=== PATIENT | male | born 1965 | race Caucasian/White ===

== ENCOUNTER → 2016-07-24 | Outpatient (CLI) | payer OTHER ==
[2016-07-24 09:14] LABS: BASO % 0.9 % (0.0-1.0); EOS # 0.3 K/mm3 (0.0-0.50); EOS % 5.3 % (0.0-3.0); LYMPH # 1.5 K/mm3 (1.5-4.5); LYMPH % 28.2 % (24.0-44.0); MEAN CORPUSCULAR HEMOGLOBIN 30.2 pg (27.0-33.0); MEAN CORPUSCULAR HGB CONC 33.7 g/dl (32.0-36.5); MEAN CORPUSCULAR VOLUME 89.6 fl (80.0-96.0); MONO # 0.5 K/mm3 (0.0-0.8); MONO % 8.2 % (0.0-5.0); NEUTROPHILS % 54.5 % (36.0-66.0); RED CELL DISTRIBUTION WIDTH 13.9 % (11.5-14.5); WHITE BLOOD COUNT 5.5 K/mm3 (4.0-10.0)
[2016-07-24 09:25] LABS: ALBUMIN 3.6 GM/DL (3.2-5.2); ALBUMIN/GLOBULIN RATIO 1.06 (1.00-1.93); ALKALINE PHOSPHATASE 76 U/L (45-117); ALT/SGPT 35 U/L (12-78); ANION GAP 8 MEQ/L (8-16); AST/SGOT 25 U/L (15-37); BILIRUBIN,TOTAL 0.5 MG/DL (0.2-1.0); BLOOD UREA NITROGEN 19 MG/DL (7-18); CARBON DIOXIDE LEVEL 28 MEQ/L (21-32); CHLORIDE LEVEL 106 MEQ/L (98-107); CHOLESTEROL LEVEL 227 MG/DL (<200); FREE T4 1.03 NG/DL (0.76-1.46); GLOMERULAR FILTRATION RATE > 60.0 (>56); GLUCOSE, FASTING 142 MG/DL (70-105); POTASSIUM SERUM 4.4 MEQ/L (3.5-5.1); SODIUM LEVEL 142 MEQ/L (136-145); TRIGLYCERIDES LEVEL 220 MG/DL (<150)
== END | disposition home or self-care (01) ==
LOC: M LAB 08:13
PROVIDERS: ATTEND Nurse Practitioner Adult Health
DX: E66.01 Morbid (severe) obesity due to excess calories (principal); E78.00 Pure hypercholesterolemia, unspecified; E55.9 Vitamin D deficiency, unspecified; Z79.899 Other long term (current) drug therapy; E11.9 Type 2 diabetes mellitus without complications

== ENCOUNTER → 2016-08-20 | Outpatient (CLI) | payer OTHER ==
--- NOTE | 2016-08-20 08:37 | REP ---
Clinical: Follow up prior opacities. Comparison: 10/23/2015. Findings: Current examination demonstrates the bilateral lung macedo to be well-aerated, symmetric, and clear. The previously identified patchy infiltrates have resolved and likely reflected small areas of pneumonia / atelectasis. A minimal amount of scarring is identified in the deep medial right lung base. No acute consolidation, nodule or mass lesion. No pleural effusion/reaction or pneumothorax. Tracheobronchial tree is patent. The mediastinum including heart/pericardium and thoracic aorta appear relatively normal for noncontrast evaluation. Surrounding musculoskeletal structures demonstrate stable age related changes without focal osseous abnormality. Impression: 1. Normal examination. No acute mediastinal or pleuroparenchymal process. 2. Previously identified infiltrates have resolved. Signed by Dougie Banerjee MD 08/20/2016 08:28 A
== END ==
LOC: M RAD 07:48
PROVIDERS: ATTEND Nurse Practitioner Adult Health
DX: R93.8 Abnormal findings on diagnostic imaging of other specified body structures (principal)

== ENCOUNTER 2016-10-05 10:52 | Inpatient (IN) | payer OTHER ==
[~2016-10-05] VITALS: Ht 190.5 cm; Wt 170.1 kg
[2016-10-05] MEDS ORDERED: NS 1,000 ML IV ONE (11:15)
[2016-10-05] MEDS ORDERED: VITA100066 PO (11:23)
[2016-10-05] MEDS ORDERED: METF500T PO (11:25)
[2016-10-05] MEDS ORDERED: DICL100T PO (11:25)
[2016-10-05 11:40] LABS: BASO % 0.1 % (0.0-1.0); EOS # 0.1 K/mm3 (0.0-0.50); EOS % 0.6 % (0.0-3.0); LARGE UNSTAINED CELL # 0.2 K/mm3 (0.0-0.4); LARGE UNSTAINED CELL % 1.2 % (0.0-4.0); LYMPH # 1.1 K/mm3 (1.5-4.5); LYMPH % 5.5 % (24.0-44.0); MEAN CORPUSCULAR HEMOGLOBIN 31.7 pg (27.0-33.0); MEAN CORPUSCULAR HGB CONC 34.8 g/dl (32.0-36.5); MEAN CORPUSCULAR VOLUME 90.9 fl (80.0-96.0); MONO # 1.2 K/mm3 (0.0-0.8); MONO % 7.6 % (0.0-5.0); NEUTROPHILS # 13.3 K/mm3 (1.8-7.7); NEUTROPHILS % 84.9 % (36.0-66.0); PLATELET COUNT, AUTOMATED 204 k/mm3 (150-450); RED CELL DISTRIBUTION WIDTH 13.9 % (11.5-14.5); WHITE BLOOD COUNT 15.7 K/mm3 (4.0-10.0)
[2016-10-05 12:30] LABS: ALBUMIN 3.3 GM/DL (3.2-5.2); ALBUMIN/GLOBULIN RATIO 0.87 (1.00-1.93); ALKALINE PHOSPHATASE 60 U/L (45-117); ALT/SGPT 26 U/L (12-78); ANION GAP 13 MEQ/L (8-16); AST/SGOT 22 U/L (15-37); BILIRUBIN,DIRECT 0.8 MG/DL (0.0-0.2); BILIRUBIN,TOTAL 1.5 MG/DL (0.2-1.0); BLOOD UREA NITROGEN 18 MG/DL (7-18); CALCIUM LEVEL 8.4 MG/DL (8.5-10.1); CARBON DIOXIDE LEVEL 25 MEQ/L (21-32); CHLORIDE LEVEL 99 MEQ/L (98-107); CREATININE FOR GFR 1.12 MG/DL (0.70-1.30); GLOMERULAR FILTRATION RATE > 60.0 (>56); GLUCOSE, FASTING 183 MG/DL (70-105); POTASSIUM SERUM 3.5 MEQ/L (3.5-5.1); SODIUM LEVEL 137 MEQ/L (136-145); TOTAL PROTEIN 7.1 GM/DL (6.4-8.2)
[2016-10-05] MEDS ORDERED: ISOVUE-370 76% 100ML VIAL (Q9967) As Ordered ONE (12:33)
[2016-10-05] MEDS ORDERED: PIPERACILLIN/TAZOBACTAM SOD 3.375 GM in D5W MINI-BAG PLUS 50 ML IV ONE (13:15)
[2016-10-05] MEDS ORDERED: SODIUM CHLORIDE 0.9% 1000 ML IV ONE (13:15)
--- NOTE | 2016-10-05 13:23 | REP ---
CT study of the abdomen and pelvis with IV but without oral contrast: History: Abdominal pain. Question appendicitis. CT contrast dose: 100 mL of Isovue [address] findings: Preliminary digital security operations analyst radiograph demonstrates a right hip replacement. There are air-filled loops of proximal and distal colon and a right ileal loop. This may reflect an ileus pattern. Axial CT images demonstrate that the lung bases are clear. There is no evidence of pleural effusion or ascites. There is mild diffuse fatty infiltration of the liver. No focal liver lesion is seen. Spleen is unremarkable. No adrenal lesion is seen. No pancreatic abnormality is observed. The gallbladder is unremarkable by CT imaging. The kidneys enhance symmetrically and are morphologically intact. In the right lower quadrant, the appendix is dilated and there is periappendiceal streaking and inflammation. No appendicolith is seen. No abscess or free air is noted. There is some inflammation of the tip of the cecum. The findings are compatible with acute appendicitis. There is a small bubble of intramural air at the cecal tip. Impression: CT findings of acute appendicitis with periappendiceal and pericecal inflammation. No abscess or free air. Mild diffuse fatty infiltration of the liver is also noted. Mild ileus. Signed by Leopoldo Grace MD 10/05/2016 01:45 P
[2016-10-05] MEDS ORDERED: DRIS50002 PO (13:27)
[2016-10-05] MEDS ORDERED: MORPHINE 4 MG/ML 1ML SYRINGE IV ONE (14:00)
[2016-10-05] MEDS ORDERED: ONDANSETRON 4MG/2ML VIAL (J2405) IV ONE (14:00)
[2016-10-05] MEDS ORDERED: ACETAMINOPHEN TAB 650MG DOSE (2X325MG) PO ONE (16:15)
[2016-10-05] MEDS ORDERED: BUPIVACAINE HCL 0.25% 30 ML VIAL As Ordered ONE (17:18)
[2016-10-05] MEDS ORDERED: ROCURONIUM BROMIDE 50 MG/5 ML VIAL As Ordered ONE ×2 (17:28→18:58)
[2016-10-05] MEDS ORDERED: SUCCINYLCHOLINE 100 MG/5 ML SYRINGE (J0330) As Ordered ONE (17:35)
[2016-10-05] MEDS ORDERED: fentaNYL 250 MCG/5 ML INJECTION (J3010) As Ordered ONE ×2 (18:28→18:58)
[2016-10-05] MEDS ORDERED: PIPERACILLIN/TAZOBACTAM SOD 2.25 GM in D5W MINI-BAG PLUS 50 ML IV ONE (18:30)
[2016-10-05] MEDS ORDERED: PROPOFOL 200 MG/20 ML VIAL As Ordered ONE ×3 (18:58→19:26)
[2016-10-05] MEDS ORDERED: MIDAZOLAM INJ 2 MG/2 ML VIAL (J2250) As Ordered ONE (18:58)
[2016-10-05] MEDS ORDERED: ONDANSETRON 4MG/2ML VIAL (J2405) As Ordered ONE (18:58)
[2016-10-05] MEDS ORDERED: KETOROLAC 60 MG/2 ML VIAL (J1885) As Ordered ONE (18:58)
[2016-10-05] MEDS ORDERED: LIDOCAINE 2% INJ 100 MG/5 ML SDV (FOR ANES.) As Ordered ONE (18:58)
[2016-10-05] MEDS ORDERED: dexameTHASONE 4 MG/ML 1ML VIAL (J1100) As Ordered ONE (18:58)
[2016-10-05] MEDS ORDERED: METOCLOPRAMIDE INJ 10MG/2ML VIAL (J2765) As Ordered ONE (18:59)
[2016-10-05] MEDS ORDERED: NEOSTIGMINE 1MG/ML 5 ML SYRINGE (J2710) As Ordered ONE (19:08)
[2016-10-05] MEDS ORDERED: GLYCOPYRROLATE INJ 0.2 MG/ML 2 ML VIAL As Ordered ONE (19:08)
--- NOTE | 2016-10-05 20:01 | ECGEPIP ---
Stationary ECG Study [facility] - ED Test Date: 2016-10-05 Pat Name: ELIANA DICK Department: Room: - Gender: M Candy Separator Enrobing: cee : 1965 Requested By: Shana Morse Order Number: [id number] Reading MD: Shana Morse Measurements Intervals [place] Rate: 104 P: 41 VT: 204 QRS: 27 QRSD: 106 T: 51 QT: 322 QTc: 424 Interpretive Statements SINUS TACHYCARDIA ABNORMAL RHYTHM ECG NSTTW ABNORMALITY INCREASED RATE 07/25/11 Electronically Signed On 10-05-2016 20:01:11 EDT by Shana Morse
[2016-10-05] MEDS ORDERED: PERCOCET 5MG/325MG TAB PO PRN (20:30)
[2016-10-05] MEDS ORDERED: ACETAMINOPHEN TAB 650MG DOSE (2X325MG) PO PRN (20:30)
[2016-10-05] MEDS ORDERED: fentaNYL 100 MCG/2 ML INJECTION (J3010) IV PRN (20:30)
[2016-10-05] MEDS ORDERED: ONDANSETRON 4MG/2ML VIAL (J2405) IV PRN (20:30)
[2016-10-05] MEDS ORDERED: LR 1,000 ML IV SCH (20:30)
[2016-10-05] MEDS ORDERED: MORPHINE 2 MG/ML 1ML SYRINGE IV PRN (20:45)
[2016-10-05] MEDS ORDERED: NORCO, ANEXSIA 5/325MG TABLET (HYDROcodone/ACETAMINOPHEN) PO PRN ×2 (20:45)
[2016-10-05 21:30] VITALS: BP 133/70
[2016-10-05 22:00] VITALS: BP 116/65
[2016-10-05 23:00] VITALS: BP 137/82
[2016-10-05] MEDS: LR 1,000 ML IV SCH (23:58)
[2016-10-05] MEDS: PIPERACILLIN/TAZOBACTAM SOD 3.375 GM in D5W MINI-BAG PLUS 50 ML IV SCH (23:58)
[2016-10-06] VITALS (8 sets, daily range): BP systolic 131–192; BP diastolic 60–98; O2SAT 95–96
[2016-10-06] MEDS: HumaLOG INSULIN (NovoLOG) PER UNIT SC SCH ×4 (01:25→18:17)
[2016-10-06 06:04] LABS: ANION GAP 9 MEQ/L (8-16); BASO % 0.1 % (0.0-1.0); BLOOD UREA NITROGEN 17 MG/DL (7-18); CALCIUM LEVEL 8.6 MG/DL (8.5-10.1); CARBON DIOXIDE LEVEL 26 MEQ/L (21-32); CHLORIDE LEVEL 101 MEQ/L (98-107); CREATININE FOR GFR 1.11 MG/DL (0.70-1.30); EOS % 0.2 % (0.0-3.0); GLOMERULAR FILTRATION RATE > 60.0 (>56); GLUCOSE, FASTING 232 MG/DL (70-105); LARGE UNSTAINED CELL # 0.1 K/mm3 (0.0-0.4); LARGE UNSTAINED CELL % 0.9 % (0.0-4.0); LYMPH # 0.9 K/mm3 (1.5-4.5); LYMPH % 5.6 % (24.0-44.0); MEAN CORPUSCULAR HEMOGLOBIN 30.5 pg (27.0-33.0); MEAN CORPUSCULAR HGB CONC 33.2 g/dl (32.0-36.5); MONO # 0.8 K/mm3 (0.0-0.8); MONO % 5.5 % (0.0-5.0); NEUTROPHILS # 11.9 K/mm3 (1.8-7.7); NEUTROPHILS % 87.7 % (36.0-66.0); PLATELET COUNT, AUTOMATED 198 k/mm3 (150-450); POTASSIUM SERUM 3.6 MEQ/L (3.5-5.1); RED CELL DISTRIBUTION WIDTH 13.9 % (11.5-14.5); SODIUM LEVEL 136 MEQ/L (136-145); WHITE BLOOD COUNT 13.5 K/mm3 (4.0-10.0)
[2016-10-06] MEDS: LR 1,000 ML IV SCH ×2 (06:30→11:30)
[2016-10-06] MEDS: PIPERACILLIN/TAZOBACTAM SOD 3.375 GM in D5W MINI-BAG PLUS 50 ML IV SCH ×3 (06:44→18:17)
[2016-10-06] MEDS: ENOXAPARIN 40 MG/0.4 ML SYRINGE (J1650) SC SCH (06:44)
[2016-10-06] MEDS: CALCIUM CARBONATE 500 MG CHEW U/D PO PRN ×4 (11:49→21:28)
[2016-10-06] MEDS: ONDANSETRON 4MG/2ML VIAL (J2405) IV PRN ×2 (15:33→21:28)
[2016-10-07] MEDS: PIPERACILLIN/TAZOBACTAM SOD 3.375 GM in D5W MINI-BAG PLUS 50 ML IV SCH ×4 (00:53→17:25)
[2016-10-07] MEDS: HumaLOG INSULIN (NovoLOG) PER UNIT SC SCH ×4 (00:53→17:26)
[2016-10-07 02:00] VITALS: BP 148/56
[2016-10-07] MEDS: CALCIUM CARBONATE 500 MG CHEW U/D PO PRN (02:02)
[2016-10-07] MEDS: KETOROLAC 30 MG/ML VIAL (J1885) IV PRN ×2 (02:02→17:25)
[2016-10-07 06:00] VITALS: BP 139/84
[2016-10-07] MEDS: ENOXAPARIN 40 MG/0.4 ML SYRINGE (J1650) SC SCH (06:44)
[2016-10-07 06:59] LABS: BASO % 0.1 % (0.0-1.0); EOS % 0.1 % (0.0-3.0); LARGE UNSTAINED CELL # 0.1 K/mm3 (0.0-0.4); LARGE UNSTAINED CELL % 1.1 % (0.0-4.0); LYMPH % 7.4 % (24.0-44.0); MEAN CORPUSCULAR HEMOGLOBIN 30.5 pg (27.0-33.0); MEAN CORPUSCULAR HGB CONC 34.1 g/dl (32.0-36.5); MEAN CORPUSCULAR VOLUME 89.6 fl (80.0-96.0); MONO # 0.6 K/mm3 (0.0-0.8); MONO % 4.9 % (0.0-5.0); NEUTROPHILS # 11.4 K/mm3 (1.8-7.7); NEUTROPHILS % 86.5 % (36.0-66.0); PLATELET COUNT, AUTOMATED 241 k/mm3 (150-450); RED CELL DISTRIBUTION WIDTH 13.7 % (11.5-14.5); WHITE BLOOD COUNT 13.2 K/mm3 (4.0-10.0)
[2016-10-07 07:18] LABS: ALBUMIN 2.4 GM/DL (3.2-5.2); ALBUMIN/GLOBULIN RATIO 0.55 (1.00-1.93); ALKALINE PHOSPHATASE 55 U/L (45-117); ALT/SGPT 24 U/L (12-78); ANION GAP 8 MEQ/L (8-16); AST/SGOT 32 U/L (15-37); BILIRUBIN,TOTAL 1.2 MG/DL (0.2-1.0); BLOOD UREA NITROGEN 19 MG/DL (7-18); CALCIUM LEVEL 8.9 MG/DL (8.5-10.1); CARBON DIOXIDE LEVEL 32 MEQ/L (21-32); CHLORIDE LEVEL 99 MEQ/L (98-107); CREATININE FOR GFR 0.98 MG/DL (0.70-1.30); GLOMERULAR FILTRATION RATE > 60.0 (>56); GLUCOSE, FASTING 158 MG/DL (70-105); POTASSIUM SERUM 3.6 MEQ/L (3.5-5.1); SODIUM LEVEL 139 MEQ/L (136-145); TOTAL PROTEIN 6.8 GM/DL (6.4-8.2)
[2016-10-07] MEDS: LR 1,000 ML IV SCH (09:01)
--- NOTE | 2016-10-07 09:18 | RO ---
DATE OF PROCEDURE: 10/05/2016 PREOPERATIVE DIAGNOSIS: Appendicitis. POSTOPERATIVE DIAGNOSIS: Appendicitis with abscess. PROCEDURE PERFORMED: Laparoscopic appendectomy with drainage of abscess and placement of drain. SURGEON: Dr. Adriel Davies. ANESTHESIA: General. INDICATIONS FOR PROCEDURE: The patient is a 51-year-old man who reported a several-day history of abdominal pain. This was fairly diffuse at first but became more localized to the right lower quadrant. He described some constant discomfort with intermittent more severe pains. He was seen in the emergency department and found to have tenderness in the right lower quadrant. His white blood cell count was elevated to almost 16,000. A CT scan revealed changes consistent with appendicitis. He is now for a laparoscopic appendectomy. OPERATIVE PROCEDURE: The patient was placed under general endotracheal anesthesia. The patient's abdomen was prepped and draped in a sterile fashion. 0.25% Marcaine was infiltrated at each of the trocar sites. A short supraumbilical midline incision was made and deepened through the subcutaneous tissues and fascia. A Sabrina cannula was inserted in the abdomen was insufflated with carbon dioxide gas. Initial examination showed some inflammatory adhesions in the right lower quadrant with portions of the omentum and bowel adherent to the anterior abdominal wall. As the abdomen was inflated, some of these attachments spontaneously, but others could be broken apart using the scope. There was some exudate noted in the lateral right lower quadrant. The patient was tilted to a Trendelenburg position and rolled to the left. A 5 mm trocar was placed in the left lower quadrant and a second trocar was placed low in the midline. Graspers were inserted. These were used to peel the adherent structures off of the anterior abdominal wall. As the tissues were , an abscess was encountered. This was irregular and walled off between the terminal ileum and cecum and anterior and lateral abdominal thomas. The suction senior administrative services officer was used to drain the purulent matter from the abscess and then irrigate the area. The attachments forming the thomas of the abscess were broken apart using primarily blunt dissection. Some portions of fibrinous exudate lining the cavity were removed with forceps through one of the trocar sites. With further exploration, the appendix was identified lying inferiorly to the cecum and lateral to the terminal ileum. Attachments were divided using the electrocautery to free the appendix and elevate this for removal. The mesoappendix was primarily divided using the electrocautery with care to ensure hemostasis. A larger vessel after cautery was clipped with a hemoclip. The appendix was dissected free down to the base. There were some areas of discoloration on the cecum and the lateral abdominal wall where the abscess had been but the wall of the cecum appeared sound. The appendix was transected at its base using an endoscopic 45 mm linear cutter stapler with a green load. The appendix was placed in an Endopouch. The right lower quadrant was copiously irrigated. There did not appear to be any significant contamination outside of the right lower quadrant. The area was inspected carefully for hemostasis and a few small bleeding points were controlled with the cautery. Final inspection showed no bleeding. Because there was still an area of inflammation with some exudate remaining, I elected to place a drain. A #19-Swedish placed Lamont drain was selected. A 5 mm trocar was placed in the lateral abdominal wall on the right just about at the level of the umbilicus. Once this was inserted, the drain was placed into the abdomen through the Hodges site and directed out through the 5 mm trocar site. The drain was sutured to the skin with #2-0 silk. Graspers were used to advance the drain into the right lower quadrant and through the area of previous abscess. The abdomen was then deflated and the appendix was recovered through the Hodges site. The fascia at the Hodges site was closed with interrupted simple sutures of #2-0 Vicryl. The skin incisions were all closed with buried #5-0 Vicryl. The drain was connected to a Amado-Hess bulb and the drain site was covered with a CHG OpSite. Light dressings were applied to the other trocar sites. The patient tolerated the procedure well. He was awakened in the operating room, extubated and moved to the recovery room in stable condition. PEG
[2016-10-07 14:00] VITALS: BP 142/72
[2016-10-07] MEDS: ONDANSETRON 4MG/2ML VIAL (J2405) IV PRN (17:25)
[2016-10-07] MEDS: metFORMIN (GLUCOPHAGE) 500 MG TAB PO SCH (19:11)
[2016-10-07] MEDS ORDERED: GLUCAGON FOR INJ 1 MG VIAL (J1610) SC PRN (20:30)
[2016-10-07] MEDS ORDERED: DEXTROSE 50% 50 ML SYRINGE IV PRN (20:30)
[2016-10-07] MEDS ORDERED: GLUCOSE 4 GM CHEW TABLET PO PRN (20:30)
[2016-10-07 22:00] VITALS: BP 166/85
[2016-10-08 02:00] VITALS: BP 144/86
[2016-10-08] MEDS: PIPERACILLIN/TAZOBACTAM SOD 3.375 GM in D5W MINI-BAG PLUS 50 ML IV SCH ×3 (02:35→11:55)
[2016-10-08] MEDS: LR 1,000 ML IV SCH (02:36)
[2016-10-08] MEDS: KETOROLAC 30 MG/ML VIAL (J1885) IV PRN ×2 (03:56→14:33)
[2016-10-08 06:00] VITALS: BP 135/84
[2016-10-08] MEDS: ENOXAPARIN 40 MG/0.4 ML SYRINGE (J1650) SC SCH (06:22)
[2016-10-08 07:09] LABS: BASO # 0.1 K/mm3 (0.0-0.2); BASO % 0.6 % (0.0-1.0); EOS # 0.1 K/mm3 (0.0-0.50); EOS % 0.8 % (0.0-3.0); LARGE UNSTAINED CELL # 0.2 K/mm3 (0.0-0.4); LARGE UNSTAINED CELL % 1.5 % (0.0-4.0); LYMPH # 1.2 K/mm3 (1.5-4.5); LYMPH % 12.1 % (24.0-44.0); MEAN CORPUSCULAR HEMOGLOBIN 30.6 pg (27.0-33.0); MEAN CORPUSCULAR HGB CONC 33.2 g/dl (32.0-36.5); MONO # 0.6 K/mm3 (0.0-0.8); MONO % 6.3 % (0.0-5.0); NEUTROPHILS # 7.8 K/mm3 (1.8-7.7); NEUTROPHILS % 78.6 % (36.0-66.0); PLATELET COUNT, AUTOMATED 256 k/mm3 (150-450); RED CELL DISTRIBUTION WIDTH 13.6 % (11.5-14.5); WHITE BLOOD COUNT 9.9 K/mm3 (4.0-10.0)
[2016-10-08] MEDS: metFORMIN (GLUCOPHAGE) 500 MG TAB PO SCH (08:45)
[2016-10-08 14:00] VITALS: BP 124/71
[2016-10-08] MEDS ORDERED: FLAG500T PO (15:22)
[2016-10-08] MEDS ORDERED: BACT800T5 PO (15:22)
== END 2016-10-08 16:15 | disposition home or self-care (01) | DRG 225 ==
LOC: M ED 11:55 → M SDC 16:23 → M PCU 21:00 → M MS5PR 10-06 16:51
PROVIDERS: ADMIT Surgery; ATTEND Surgery
PROC: 0DTJ4ZZ Resection of Appendix, Percutaneous Endoscopic Approach (ICD-10-PCS; principal; 2016-10-05 14:51)
DX: K35.3 Acute appendicitis with localized peritonitis (principal); Z68.42 Body mass index [BMI] 45.0-49.9, adult; E66.01 Morbid (severe) obesity due to excess calories; E11.9 Type 2 diabetes mellitus without complications; Z79.84 Long term (current) use of oral hypoglycemic drugs; Z79.899 Other long term (current) drug therapy

== ENCOUNTER → 2016-12-26 | Outpatient (CLI) | payer OTHER ==
[~2016-12-26] MED LIST: BACT800T5 PO; DICL100T PO; DRIS50002 PO; FLAG500T PO; METF500T PO; VITA100066 PO
[2016-12-26 09:58] LABS: BASO # 0.1 K/mm3 (0.0-0.2); BASO % 0.8 % (0.0-1.0); EOS # 0.2 K/mm3 (0.0-0.50); EOS % 1.9 % (0.0-3.0); LARGE UNSTAINED CELL # 0.1 K/mm3 (0.0-0.4); LARGE UNSTAINED CELL % 1.6 % (0.0-4.0); LYMPH # 2.3 K/mm3 (1.5-4.5); LYMPH % 26.5 % (24.0-44.0); MEAN CORPUSCULAR HEMOGLOBIN 31.9 pg (27.0-33.0); MEAN CORPUSCULAR HGB CONC 34.6 g/dl (32.0-36.5); MEAN CORPUSCULAR VOLUME 92.1 fl (80.0-96.0); MONO # 0.6 K/mm3 (0.0-0.8); MONO % 7.2 % (0.0-5.0); PLATELET COUNT, AUTOMATED 274 k/mm3 (150-450); RED CELL DISTRIBUTION WIDTH 14.1 % (11.5-14.5)
[2016-12-26 10:34] LABS: ALBUMIN/GLOBULIN RATIO 1.03 (1.00-1.93); ALKALINE PHOSPHATASE 69 U/L (45-117); ALT/SGPT 46 U/L (12-78); ANION GAP 5 MEQ/L (8-16); AST/SGOT 36 U/L (15-37); BILIRUBIN,DIRECT 0.1 MG/DL (0.0-0.2); BILIRUBIN,TOTAL 0.5 MG/DL (0.2-1.0); BLOOD UREA NITROGEN 18 MG/DL (7-18); CALCIUM LEVEL 9.9 MG/DL (8.5-10.1); CARBON DIOXIDE LEVEL 28 MEQ/L (21-32); CHLORIDE LEVEL 105 MEQ/L (98-107); CREATININE FOR GFR 0.89 MG/DL (0.70-1.30); GLOMERULAR FILTRATION RATE > 60.0 (>56); GLUCOSE, FASTING 118 MG/DL (70-105); SODIUM LEVEL 138 MEQ/L (136-145); TOTAL PROTEIN 7.9 GM/DL (6.4-8.2)
[2016-12-26 10:47] LABS: POTASSIUM SERUM 5.2 MEQ/L (3.5-5.1)
== END ==
LOC: M LAB 09:12
PROVIDERS: ATTEND Orthopaedic Surgery
DX: Z51.81 Encounter for therapeutic drug level monitoring (principal); Z79.899 Other long term (current) drug therapy; M25.559 Pain in unspecified hip

== ENCOUNTER → 2017-01-16 | Outpatient (CLI) | payer OTHER ==
[~2017-01-16] MED LIST changes: -METF500T PO; +METF500T13 PO
[2017-01-16 13:06] LABS: ALKALINE PHOSPHATASE 62 U/L (45-117); ALT/SGPT 41 U/L (12-78); ANION GAP 6 MEQ/L (8-16); AST/SGOT 24 U/L (15-37); BILIRUBIN,TOTAL 0.7 MG/DL (0.2-1.0); BLOOD UREA NITROGEN 18 MG/DL (7-18); CALCIUM LEVEL 9.5 MG/DL (8.5-10.1); CARBON DIOXIDE LEVEL 30 MEQ/L (21-32); CHLORIDE LEVEL 107 MEQ/L (98-107); CHOLESTEROL LEVEL 224 MG/DL (<200); CREATININE FOR GFR 0.96 MG/DL (0.70-1.30); GLOMERULAR FILTRATION RATE > 60.0 (>56); GLUCOSE, FASTING 121 MG/DL (70-105); POTASSIUM SERUM 4.4 MEQ/L (3.5-5.1); SODIUM LEVEL 143 MEQ/L (136-145); TRIGLYCERIDES LEVEL 190 MG/DL (<150)
[2017-01-16 13:07] LABS: ALBUMIN 3.9 GM/DL (3.2-5.2); ALBUMIN/GLOBULIN RATIO 1.08 (1.00-1.93); TOTAL PROTEIN 7.5 GM/DL (6.4-8.2)
== END ==
LOC: M LAB 11:57
PROVIDERS: ATTEND Nurse Practitioner Adult Health
DX: E66.01 Morbid (severe) obesity due to excess calories (principal); E78.00 Pure hypercholesterolemia, unspecified; E55.9 Vitamin D deficiency, unspecified; E11.9 Type 2 diabetes mellitus without complications; Z79.899 Other long term (current) drug therapy

== ENCOUNTER → 2017-05-08 | Outpatient (CLI) | payer OTHER ==
[2017-05-08 06:42] LABS: BASO % 0.6 % (0.0-1.0); EOS # 0.2 10^3/uL (0.0-0.50); EOS % 2.1 % (0.0-3.0); IMMATURE GRANULOCYTE % 0.7 % (0-0); LYMPH # 2.3 10^3/uL (1.5-4.5); LYMPH % 32.4 % (24.0-44.0); MEAN CORPUSCULAR HEMOGLOBIN 31.5 pg (27.0-33.0); MEAN CORPUSCULAR HGB CONC 34.6 g/dl (32.0-36.5); MEAN CORPUSCULAR VOLUME 90.9 fl (80.0-96.0); MONO # 0.7 10^3/uL (0.0-0.8); MONO % 9.5 % (0.0-5.0); NEUTROPHILS # 3.8 10^3/uL (1.8-7.7); NEUTROPHILS % 54.7 % (36.0-66.0); RED CELL DISTRIBUTION WIDTH 13.7 % (11.5-14.5)
[2017-05-08 07:07] LABS: ALBUMIN 3.6 GM/DL (3.2-5.2); ALBUMIN/GLOBULIN RATIO 1.06 (1.00-1.93); ALKALINE PHOSPHATASE 66 U/L (45-117); ALT/SGPT 38 U/L (12-78); ANION GAP 7 MEQ/L (8-16); AST/SGOT 22 U/L (15-37); BILIRUBIN,TOTAL 0.5 MG/DL (0.2-1.0); BLOOD UREA NITROGEN 16 MG/DL (7-18); CALCIUM LEVEL 9.5 MG/DL (8.5-10.1); CARBON DIOXIDE LEVEL 28 MEQ/L (21-32); CHLORIDE LEVEL 106 MEQ/L (98-107); CHOLESTEROL LEVEL 230 MG/DL (<200); CREATININE FOR GFR 0.94 MG/DL (0.70-1.30); GLOMERULAR FILTRATION RATE > 60.0 (>56); GLUCOSE, FASTING 143 MG/DL (70-105); POTASSIUM SERUM 4.5 MEQ/L (3.5-5.1); SODIUM LEVEL 141 MEQ/L (136-145); TRIGLYCERIDES LEVEL 279 MG/DL (<150)
== END ==
LOC: M LAB 06:10
PROVIDERS: ATTEND Nurse Practitioner Adult Health
DX: Z79.899 Other long term (current) drug therapy (principal); E55.9 Vitamin D deficiency, unspecified; E11.9 Type 2 diabetes mellitus without complications

== ENCOUNTER → 2017-07-22 | Outpatient (CLI) | payer OTHER ==
[2017-07-22 11:09] LABS: BASO # 0.1 10^3/uL (0.0-0.2); BASO % 0.8 % (0.0-1.0); EOS # 0.2 10^3/uL (0.0-0.50); EOS % 2.6 % (0.0-3.0); HEMATOCRIT 41.7 % (42.0-52.0); HEMOGLOBIN 14.7 g/dl (14.0-18.0); IMMATURE GRANULOCYTE % 0.3 % (0-0); LYMPH # 2.3 10^3/uL (1.5-4.5); LYMPH % 30.2 % (24.0-44.0); MEAN CORPUSCULAR HEMOGLOBIN 31.7 pg (27.0-33.0); MEAN CORPUSCULAR HGB CONC 35.3 g/dl (32.0-36.5); MEAN CORPUSCULAR VOLUME 89.9 fl (80.0-96.0); MONO # 0.8 10^3/uL (0.0-0.8); MONO % 10.9 % (0.0-5.0); NEUTROPHILS # 4.1 10^3/uL (1.8-7.7); NEUTROPHILS % 55.2 % (36.0-66.0); PLATELET COUNT, AUTOMATED 268 10^3/uL (150-450); RED BLOOD COUNT 4.64 10^6/uL (4.30-6.10); RED CELL DISTRIBUTION WIDTH 13.9 % (11.5-14.5); WHITE BLOOD COUNT 7.4 10^3/uL (4.0-10.0)
[2017-07-22 11:25] LABS: ALBUMIN/GLOBULIN RATIO 1.25 (1.00-1.93); ALKALINE PHOSPHATASE 95 U/L (45-117); ALT/SGPT 41 U/L (12-78); AST/SGOT 29 U/L (7-37); BILIRUBIN,DIRECT 0.1 MG/DL (0.0-0.2); BILIRUBIN,TOTAL 0.4 MG/DL (0.2-1.0); BLOOD UREA NITROGEN 22 MG/DL (7-18); CREATININE FOR GFR 1.02 MG/DL (0.70-1.30); GLOMERULAR FILTRATION RATE > 60.0 (>56); TOTAL PROTEIN 7.2 GM/DL (6.4-8.2)
== END ==
LOC: M LAB 10:43
DX: M25.559 Pain in unspecified hip (principal); Z51.81 Encounter for therapeutic drug level monitoring; Z79.899 Other long term (current) drug therapy
CPT/HCPCS: 82565

== ENCOUNTER 2017-09-16 09:17 | Emergency (ER) | payer OTHER | END 2017-09-16 12:42 | disposition home or self-care (01) | LOC: M ED 09:17 | DX: L03.116 Cellulitis of left lower limb (principal); E11.9 Type 2 diabetes mellitus without complications; J45.909 Unspecified asthma, uncomplicated; Z79.899 Other long term (current) drug therapy | CPT/HCPCS: 93971 ==

== ENCOUNTER → 2018-02-18 | Outpatient (CLI) | payer OTHER ==
[2018-02-18 14:27] LABS: BASO % 0.5 % (0.0-1.0); EOS # 0.3 10^3/uL (0.0-0.50); EOS % 3.2 % (0.0-3.0); HEMATOCRIT 42.5 % (42.0-52.0); HEMOGLOBIN 14.5 g/dl (13.5-17.5); IMMATURE GRANULOCYTE % 0.5 % (0-3.0); LYMPH # 2.7 10^3/uL (1.5-4.5); LYMPH % 32.8 % (24.0-44.0); MEAN CORPUSCULAR HGB CONC 34.1 g/dl (32.0-36.5); MONO # 0.9 10^3/uL (0.0-0.8); MONO % 10.6 % (0.0-5.0); NEUTROPHILS # 4.3 10^3/uL (1.8-7.7); NEUTROPHILS % 52.4 % (36.0-66.0); PLATELET COUNT, AUTOMATED 264 10^3/uL (150-450); RED BLOOD COUNT 4.67 10^6/uL (4.30-6.10); RED CELL DISTRIBUTION WIDTH 13.7 % (11.5-14.5); WHITE BLOOD COUNT 8.2 10^3/uL (4.0-10.0)
[2018-02-18 14:49] LABS: ALBUMIN 3.8 GM/DL (3.2-5.2); ALBUMIN/GLOBULIN RATIO 1.03 (1.00-1.93); ALKALINE PHOSPHATASE 85 U/L (45-117); ALT/SGPT 41 U/L (12-78); AST/SGOT 23 U/L (7-37); BILIRUBIN,DIRECT 0.2 MG/DL (0.0-0.2); BILIRUBIN,TOTAL 0.4 MG/DL (0.2-1.0); BLOOD UREA NITROGEN 18 MG/DL (7-18); CREATININE FOR GFR 1.05 MG/DL (0.70-1.30); GLOMERULAR FILTRATION RATE > 60.0 (>56); TOTAL PROTEIN 7.5 GM/DL (6.4-8.2)
== END ==
LOC: M LAB 13:23
DX: Z51.81 Encounter for therapeutic drug level monitoring (principal); Z79.899 Other long term (current) drug therapy; M25.559 Pain in unspecified hip
CPT/HCPCS: 82565

== ENCOUNTER → 2018-09-25 | Outpatient (CLI) | payer OTHER ==
[~2018-09-25] MED LIST changes: -DICL100T PO; +DICL100T3 PO; -DRIS50002 PO; +DRIS50003 PO; +KEFL500C17 PO
[2018-09-25 15:44] LABS: BASO # 0.1 10^3/uL (0.0-0.2); BASO % 1.1 % (0.0-1.0); EOS # 0.2 10^3/uL (0.0-0.50); EOS % 2.6 % (0.0-3.0); HEMATOCRIT 42.7 % (42.0-52.0); HEMOGLOBIN 14.7 g/dl (13.5-17.5); LYMPH # 2.9 10^3/uL (1.5-4.5); LYMPH % 35.9 % (24.0-44.0); MEAN CORPUSCULAR HEMOGLOBIN 31.1 pg (27.0-33.0); MEAN CORPUSCULAR HGB CONC 34.4 g/dl (32.0-36.5); MEAN CORPUSCULAR VOLUME 90.3 fl (80.0-96.0); MONO # 0.9 10^3/uL (0.0-0.8); MONO % 10.6 % (0.0-5.0); NEUTROPHILS % 49.6 % (36.0-66.0); PLATELET COUNT, AUTOMATED 273 10^3/uL (150-450); RED BLOOD COUNT 4.73 10^6/uL (4.30-6.10); WHITE BLOOD COUNT 8.1 10^3/uL (4.0-10.0)
[2018-09-25 16:11] LABS: ALBUMIN 3.8 GM/DL (3.2-5.2); BILIRUBIN,DIRECT 0.2 MG/DL (0.0-0.2); BILIRUBIN,TOTAL 0.7 MG/DL (0.2-1.0); CREATININE FOR GFR 1.67 MG/DL (0.70-1.30); GLOMERULAR FILTRATION RATE 45.7 (>56); TOTAL PROTEIN 7.5 GM/DL (6.4-8.2)
== END ==
LOC: M LAB 14:48
PROVIDERS: ATTEND Orthopaedic Surgery
DX: M25.559 Pain in unspecified hip (principal); Z51.81 Encounter for therapeutic drug level monitoring

== ENCOUNTER → 2019-02-10 | Outpatient (CLI) | payer OTHER ==
[~2019-02-10] MED LIST changes: -DICL100T3 PO; +DICL100T89 PO
--- NOTE | 2019-02-20 00:25 | ECWPNPC ---
PATIENT NAME: ELIANA DICK : 1965 GENDER: MALE VISIT DATE: 02/10/2019 DISCHARGE DATE: 02/10/19 1010 VISIT LOCKED DATE TIME: PHYSICIAN: PRISCILA GNOSALEZ MD RESOURCE: PRISCILA GONSALEZ MD REASON FOR APPOINTMENT 1. HIP PAIN HISTORY OF PRESENT ILLNESS PAIN SCREENING: PATIENT HAS A COMPLAINT OF ACUTE OR CHRONIC PAIN :YES 53 YEAR OLD MALE PATIENT WITH A HISTORY OF CHRONIC LEFT HIP AND BILATERAL KNEE PAIN. THE PATIENT DESCRIBES THE PAIN ACHING, BURNING, DAILY, AND CONTINUOUS WITH A PAIN SCORE OF 8-10/10 DEPENDING ON PHYSICAL ACTIVITY. THE PATIENT SAYS HE HAS BEEN SUFFERING FROM THIS PAIN FOR MANY YEARS AND HAS TRIED NARCOTICS AND OTHER MEDICATIONS TO HELP CONTROL HIS PAIN IN THE PAST. THE PATIENT SAYS DICLOFENAC IS THE ONLY MEDICATION THAT CAN COVER HIS PAIN, HOWEVER IT IS CAUSING KIDNEY ISSUES FOR HIM, BUT HE WOULD STILL LIKE TO CONTINUE WITH THE MEDICATION BECAUSE HE CANNOT FUNCTION WITHOUT IT DUE TO HIS PAIN. THE PATIENT SAYS HIS PAIN INCREASES WITH ACTIVITIES AND CAUSES DIFFICULTIES IN PERFORMING HIS DAILY ACTIVITIES, SUCH SHOWERING, GROCERY SHOPPING, AND CLEANING HIS HOUSE. PATIENT DENIES UNEXPLAINABLE WEIGHT LOSS, FEVER, CHILLS, NEW CHANGES ON HIS URINARY OR BOWEL CONTROL. FALL RISK SCREENING: SCREENING :NO FALLS REPORTED IN THE LAST YEAR CURRENT MEDICATIONS TAKING DICLOFENAC SODIUM ER 100 MG TABLET EXTENDED RELEASE 24 HOUR 1 TABLET WITH FOOD OR MILK ORAL THREE TIMES DAILY TAKING TRULICITY 1.5 MG/0.5ML SOLUTION PEN-INJECTOR SUBCUTANEOUS 1 TIME WEEKLY TAKING ONETOUCH VERIO - STRIP IN VITRO MEDICATION LIST REVIEWED AND RECONCILED WITH THE PATIENT PAST MEDICAL HISTORY DIABETES MELLITUS ARTHRITIS DEGENERATIVE DISC DISEASE HIP PAIN ALLERGIES TRAMADOL HCL: ANXIETY/AGGRESSION - SIDE EFFECTS HYDROCODONE-ACETAMINOPHEN: ANXIETY/AGGRESSION - SIDE EFFECTS SURGICAL HISTORY RIGHT HIP REPLACEMENT 2010 APPENDECTOMY HIPS PINNED BILATERALLY AGE 12-14 FAMILY HISTORY MOTHER: ALIVE 82 YRS, RHEUMATOID ARTHRITIS, DIAGNOSED WITH DIABETES MATERNAL GRAND MOTHER: RHEUMATOID ARTHRITIS 2 SISTER(S) . UNSURE OF FATHER'S HXAUNT - - CANCER. SOCIAL HISTORY GENERAL: TOBACCO USE ARE YOU A:NONSMOKER OTHERS AT HOME: NONE. 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 DIET: CARBOHYDRATE CONTROLLED; LOW SUGAR. LANGUAGE LANGUAGES SPOKEN:MARSHALLESE NEW PATIENT PAIN DIARY PATIENT DESCRIBES PAIN :ACHING, BURNING FROM 0-10, WHAT LEVEL IS YOUR PAIN TODAY?8 PRECIPITATING FACTORS ACTIVITY - OVER-DOING IT, EATING CERTAIN FOODS, WEATHER (AT TIMES) ALLEVIATING FACTORS DICLOFENAC IMPACT ON FUNCTION UNABLE TO DO THE THINGS HE USED TO ENJOY, DIFFICULTY WITH PERFORMING ACTIVITIES OF DAILY LIVING. RECREATIONAL DRUG USE DRUG USE?NO EXERCISE: WALKS, DAILY (ALMOST EVERY DAY). LEARNING BARRIERS / SPECIAL NEEDS BARRIERS TO LEARNING?NO HEARING IMPAIRED?YES SMALL AMOUNT OF HEARING LOSS - NO HEARING AIDS. VISION IMPAIRED?NO COGNITIVELY IMPAIRED?NO READINESS TO LEARN?YES LEARNING PREFERENCES?NO LEARNING CAPABILITIES PRESENT?YES EMOTIONAL BARRIERS?NO SPECIAL DEVICES?NO GILL BOX FIXER NEEDED?NO PAIN CLINIC PFS, CLERGY, PUBLIC HEALTH REFERRALS HAS THE PATIENT BEEN EDUCATED REGARDING HIS/HER PLAN OF CARE?YES HAS THE PATIENT BEEN EDUCATED REGARDING PAIN, THE RISK FOR PAIN, THE IMPORTANCE OF EFFECTIVE PAIN MANAGEMENT, AND THE PAIN ASSESSMENT PROCESS?YES LATEX QUESTIONNAIRE LATEX ALLERGY : HAVE YOU EVER DEVELOPED ANY TYPE OF REACTION AFTER HANDLING LATEX PRODUCTS SUCH RUBBER GLOVES, CONDOMS, DIAPHRAGMS, BALLOONS, SOCKS, OR UNDERWEAR?NO LATEX ALLERGY : HAVE YOU EVER DEVELOPED ANY TYPE OF REACTION DURING OR AFTER DENTAL APPOINTMENT, VAGINAL/RECTAL EXAMINATION, SURGICAL PROCEDURE, OR ANY OTHER EXPOSURE?NO LATEX RISK : HAVE YOU EVER HAD ANY DIFFICULTY BREATHING OR HIVES AFTER EATING OR HANDLING ANY FRUITS, OR VEGETABLES; SUCH KIWI, BANANAS, STONE FRUITS, OR CHESTNUTSNO LATEX RISK : DO YOU HAVE A PREVIOUS PERSONAL HISTORY OF MORE THAN NINE SURGERIES, SPINA BIFIDA, OR REPEATED CATHERIZATIONS? NO LATEX RISK : ARE YOU FREQUENTLY EXPOSED TO LATEX PRODUCTS IN YOUR OCCUPATION?NO DATE ASKED : 02/10/2019 CAFFEINE CAFFEINE USE?YES HOW OFTEN AND HOW MUCH? COFFEE- UP TO 1 POT OF COFFEE PER DAY ADVANCE DIRECTIVE ADVANCE DIRECTIVE DISCUSSED WITH PATIENT:YES PATIENT DECLINED HCP INFORMATION AT THIS TIME. MARITAL STATUS: SINGLE. ALCOHOL SCREENING DID YOU HAVE A DRINK CONTAINING ALCOHOL IN THE PAST YEAR?YES HOW OFTEN DID YOU HAVE A DRINK CONTAINING ALCOHOL IN THE PAST YEAR?MONTHLY OR LESS (1 POINT) HOW MANY DRINKS DID YOU HAVE ON A TYPICAL DAY WHEN YOU WERE DRINKING IN THE PAST YEAR?1 OR 2 (0 POINTS) HOW OFTEN DID YOU HAVE SIX OR MORE DRINKS ON ONE OCCASION IN THE PAST YEAR?NEVER (0 POINTS) POINTS1 INTERPRETATIONNEGATIVE OCCUPATION: DISABLED. REVIEWED WITH PATIENT 02/10/19 1534 . HOSPITALIZATION/MAJOR DIAGNOSTIC PROCEDURE SURGERY RELATED REVIEW OF SYSTEMS REVIEWED BY: PROVIDER: PRISCILA GONSALEZ MD . CONSTITUTIONAL: ANY CHANGE IN YOUR MEDICAL CONDITION? NO . CHILLS NO . FEVER NO . INFECTION: DO YOU HAVE NEW INFECTIONS? NO . DO YOU HAVE HISTORY OF MRSA? NO . MUSCULOSKELETAL: ANY NEW PATTERNS OF PAIN OR NUMBNESS? YES, STATES HIS ARTHRITIS IS PROGRESSIVELY WORSENING. STATES PAIN IS SO INTOLERABLE WHEN HE DOESN'T HAVE DICLOFENAC THAT HE CAN'T FUNCTION . SYTEMIC LUPUS NO . GASTROENTEROLOGY: ANY NEW CHANGE IN BOWEL CONTROL? NO . BARRETTS ESOPHAGUS NO . CIRRHOSIS NO . HEPATITIS NO . LIVER FAILURE NO . ACID REFLUX NO . UNEXPLAINED WEIGHT LOSS NO . GENITOURINARY: ANY NEW CHANGE IN BLADDER CONTROL? NO . IS THERE A CHANCE YOU COULD BE ? NO . HEMATOLOGY/LYMPH: DO YOU TAKE ANY BLOOD THINNERS? (FOR EXAMPLE- COUMADIN, PLAVIX, AGGRENOX, PLATEL, PRADAXA, OR XARELTO) NO . WHEN WAS YOUR LAST DOSE? DATE: TIME: . LOW PLATELET COUNT NO . SICKLE CELL DISEASE NO . VON WILLIEBRANDS NO . FACTOR V LEIDEN NO . THALLASEMIA NO . ANEMIA NO . EASY BRUISING NO . NEUROLOGY: HAVE YOU FALLEN IN THE PAST 12 MONTHS? NO . ANY NEW EXTREMITY NUMBNESS OR WEAKNESS? NO . HEAD INJURY NO . DEMENTIA NO . CEREBRAL PALSY NO . MULTIPLE SCLEROSIS NO . DIZZINESS NO . HEADACHE NO . STROKES NO . VERTIGO YES, STATES IN THE PAST . CARDIOLOGY: DO YOU HAVE A PACEMAKER OR DEFIBRILLATOR? NO . ANGINA NO . HEART ATTACK NO . HEART SURGERY NO . CONGESTIVE HEART FAILURE/FLUID OVERLOAD NO . CHEST PAIN NO . HIGH BLOOD PRESSURE NO . IRREGULAR HEART BEAT NO . RESPIRATORY: HAVE YOU BEEN SICK IN THE PAST WEEK? NO . FEVER NO . FLU LIKE SYMPTOMS? NO . CPAP NO . BYPAP NO . ASTHMA NO . EMPHYSEMA NO . CHRONIC LUNG DISEASES NO . SHORTNESS OF BREATH ON EXERTION NO . COUGH NO . SNORING NO . INTEGUMENTARY: DO YOU HAVE ANY RASHES OR OPEN SORES? NO . ALLERGIC/IMMUNO: ARE YOU ALLERGIC TO IV DYE? NO . ANY NEW ALLERGIES? NO . PSYCHIATRIC: DO YOU HAVE THOUGHTS OF HURTING YOURSELF OR SOMEONE ELSE? NO . ARE YOU ABUSED, NEGLECTED, OR IN AN UNSAFE ENVIRONMENT? NO . ENDOCRINOLOGY: ARE YOU DIABETIC? YES . THYROID DISORDER NO . OTHER: DO YOU NEED ANY PRESCRIPTIONS? YES . IF YES, PLEASE LIST: ____DICLOFENAC . ANY NEW PROBLEMS WITH YOUR MEDICATIONS? YES, THE DICLOFENAC DOES RAISE THE PATIENT'S CREATININE LEVELS - WAS STOPPED FOR 3 MONTHS, CURRENTLY TAKING AGAIN . WHEN DID YOU LAST EAT? ____ . WHEN DID YOU LAST DRINK? ____ . WHAT DID YOU LAST DRINK? ____ . NAME OF PERSON DRIVING YOU HOME? ____ . DO YOU HAVE ANY OTHER QUESTIONS OR CONCERNS YES, PATIENT CONCERNED ABOUT BEING ABLE TO GET MEDICATIONS - STATES "THE FEDERAL GOVERNMENT HAS CREATED A BIGGER PROBLEM. PEOPLE WHO NEED PAIN MEDS CAN'T GET THEM AND HAVE RESORTED TO BLACK MARKET PURCHASES OFF THE STREETS. IF I WAS A HEROIN ADDICT, I WOULD BE GETTING MEDS WITHOUT A PROBLEM. ELDERLY PEOPLE BUYING PAIN MEDS OFF THE STREET - WHAT IS WRONG WITH THAT PICTURE?" . VITAL SIGNS WT 375.2 LBS, HT 75 IN, BMI 46.89 INDEX, BP 146/82 MM HG, HR 97 /MIN, RR 18 /MIN, TEMP 97.1 F, OXYGEN SAT % 97%, SAFE IN ENV? (Y/N) YES, NA INITIALS AW 1450, REVIEWED BY: CHRISTINA. EXAMINATION GENERAL EXAMINATION: PATIENT IS ALERT O X 3 AND COOPERATIVE. LUNGS CLEAR, TO AUSCULTATION. HEART: NO MURMURS OR GALLOPS; FACIAL CRANIAL NERVES ARE GROSSLY NORMAL. GOOD SYMMETRY OF FACIAL MUSCLE MOVEMENT. NORMAL VISUAL MEZA. TENDERNESS IN BOTH KNEES. TROPHIC CHANGES IN DISTAL LEGS. MRI OF THE LUMBAR SPINE DONE ON 09/11/2016 SHOWS FACET ARTHROPATHY CHANGES. ASSESSMENTS PAIN OF MULTIPLE SITES - R52 (PRIMARY) OTHER CHRONIC PAIN - G89.29 PAIN IN RIGHT HIP - M25.551 PAIN IN RIGHT KNEE - M25.561 PAIN IN LEFT KNEE - M25.562 RULE OUT RHEUMATOLOGY CONDITION. TREATMENT PAIN OF MULTIPLE SITES CLINICAL NOTES: WE DISCUSSED SEVERAL ISSUES WITH MR. DICK' PAIN MANAGEMENT CASE. I WILL START THE PATIENT ON CYMBALTA 30 MG 1 TABLET DAILY FOR MUSCULOSKELETAL AND NEUROPATHIC PAIN AN ALTERNATE PAIN RELIEVER TO DICLOFENAC. I SUGGESTED THE OPTIONS OF A HIP INJECTION OR RADIOFREQUENCY OF THE KNEES, AND THE PATIENT SAID HE WILL THINK ABOUT THESE OPTIONS. I EXPLAINED TO THE PATIENT THAT OUR CLINIC IS FOR INTERVENTIONAL PAIN CLINIC, THEREFORE I AM REFERRING THE PATIENT TO [facility]'S PALLIATIVE CARE PROGRAM TO CONTINUE HIS MEDICATION MANAGEMENT. THE PATIENT WILL FOLLOW UP IN 3 WEEKS WITH THE NURSE PRACTITIONER. INSTRUCTIONS WERE GIVEN, QUESTIONS WERE ANSWERED, PATIENT REPORTS UNDERSTANDING AND AGREES WITH THE PLAN. I, TYRESE ANG, DOCUMENTED THE ABOVE INFORMATION ACTING A SCRIBE FOR DR. GONSALEZ. I HAVE REVIEWED THE ABOVE DOCUMENT, WRITTEN BY TYRESE FRANKLIN AND I VERIFY THAT IT IS ACCURATE. DEAR DR. GAY DOUGHERTY MD: THANK YOU FOR YOUR KIND REFERRAL OF ELIANA DICK. IF YOU WANT TO DISCUSS HIS CASE WITH ME PLEASE CALL ME AT THE PAIN CENTER AT [phone]. SINCERELY, PRISCILA GONSALEZ MD PAIN MEDICINE . OTHERS START CYMBALTA CAPSULE DELAYED RELEASE PARTICLES, 30 MG, 1 CAPSULE, ORALLY WITH FOOD, ONCE A DAY FOR PAIN, 30 DAY(S), 30, REFILLS 1 PREVENTIVE MEDICINE PAIN CLINIC TEACHING: MEDICATIONS CYMBALTA HANDOUT PRINTED, REVIEWED AND GIVEN TO PT. EM. 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 IT IS NOT A COPY OF THE [employer] PROGRESS NOTE. MTDD
== END ==
LOC: M PAIN 14:45
PROVIDERS: ATTEND Anesthesiology
DX: G89.29 Other chronic pain (principal); M25.551 Pain in right hip; M25.561 Pain in right knee; M25.562 Pain in left knee; E11.9 Type 2 diabetes mellitus without complications; Z79.84 Long term (current) use of oral hypoglycemic drugs; Z79.899 Other long term (current) drug therapy; Z88.5 Allergy status to narcotic agent

== ENCOUNTER → 2019-03-02 | Outpatient (CLI) | payer OTHER ==
[2019-03-02 08:50] LABS: BASO % 0.5 % (0.0-1.0); EOS # 0.4 10^3/uL (0.0-0.50); EOS % 5.1 % (0.0-3.0); HEMATOCRIT 45.4 % (42.0-52.0); HEMOGLOBIN 15.5 g/dl (13.5-17.5); LYMPH # 1.9 10^3/uL (1.5-4.5); LYMPH % 23.9 % (24.0-44.0); MEAN CORPUSCULAR HEMOGLOBIN 31.9 pg (27.0-33.0); MEAN CORPUSCULAR HGB CONC 34.1 g/dl (32.0-36.5); MEAN CORPUSCULAR VOLUME 93.4 fl (80.0-96.0); MONO # 0.8 10^3/uL (0.0-0.8); MONO % 9.8 % (0.0-5.0); NEUTROPHILS # 4.7 10^3/uL (1.8-7.7); NEUTROPHILS % 60.2 % (36.0-66.0); PLATELET COUNT, AUTOMATED 256 10^3/uL (150-450); RED BLOOD COUNT 4.86 10^6/uL (4.30-6.10); WHITE BLOOD COUNT 7.8 10^3/uL (4.0-10.0)
[2019-03-02 09:22] LABS: THYROID STIMULATING HORMONE 1.5 uIU/ML (0.358-3.740)
[2019-03-02 09:37] LABS: TOTAL 25(OH) VITAMIN D 19.4 NG/ML (30.0-100.0)
[2019-03-02 10:18] LABS: HEMOGLOBIN A1c 7.5 %
== END ==
LOC: M LAB 08:03
PROVIDERS: ATTEND Internal Medicine Cardiovascular Disease
DX: E11.65 Type 2 diabetes mellitus with hyperglycemia (principal); E78.00 Pure hypercholesterolemia, unspecified; G89.4 Chronic pain syndrome; E55.9 Vitamin D deficiency, unspecified

== ENCOUNTER → 2019-04-22 | Outpatient (CLI) | payer OTHER ==
--- NOTE | 2019-04-23 23:54 | ECWPNPC ---
PATIENT NAME: ELIANA DICK : 1965 GENDER: MALE VISIT DATE: 04/22/2019 DISCHARGE DATE: 04/22/19 1206 VISIT LOCKED DATE TIME: PHYSICIAN: LUIS ROLAND RESOURCE: LUIS ROLAND REASON FOR APPOINTMENT 1. FOLLOW UP HISTORY OF PRESENT ILLNESS HISTORY OF PRESENT ILLNESS: PAIN THE PATIENT DESCRIBES THE PAIN... 54-YEAR-OLD MALE IN FOR CHRONIC PAIN FOLLOW-UP. HE FEELS MEDICATIONS ARE WORKING WELL AND DENIES MEDICATION SIDE EFFECTS AT THIS TIME. HE RATES HIS PAIN CURRENTLY AT A 3 OUT OF 10 AND DESCRIBES IT ACHING, AND INFLAMMATION OF THE JOINTS. FALL RISK SCREENING: SCREENING :NO FALLS REPORTED IN THE LAST YEAR CURRENT MEDICATIONS TAKING DICLOFENAC SODIUM ER 100 MG TABLET EXTENDED RELEASE 24 HOUR 1 TABLET WITH FOOD OR MILK ORAL THREE TIMES DAILY TAKING TRULICITY 1.5 MG/0.5ML SOLUTION PEN-INJECTOR SUBCUTANEOUS 1 TIME WEEKLY TAKING ONETOUCH VERIO - STRIP IN VITRO TAKING CYMBALTA 30 MG CAPSULE DELAYED RELEASE PARTICLES 1 CAPSULE ORALLY WITH FOOD ONCE A DAY FOR PAIN MEDICATION LIST REVIEWED AND RECONCILED WITH THE PATIENT PAST MEDICAL HISTORY DIABETES MELLITUS ARTHRITIS DEGENERATIVE DISC DISEASE HIP PAIN ALLERGIES TRAMADOL HCL: ANXIETY/AGGRESSION - SIDE EFFECTS HYDROCODONE-ACETAMINOPHEN: ANXIETY/AGGRESSION - SIDE EFFECTS SURGICAL HISTORY RIGHT HIP REPLACEMENT 2010 APPENDECTOMY HIPS PINNED BILATERALLY AGE 12-14 FAMILY HISTORY MOTHER: ALIVE 82 YRS, RHEUMATOID ARTHRITIS, DIAGNOSED WITH DIABETES MATERNAL GRAND MOTHER: RHEUMATOID ARTHRITIS 2 SISTER(S) . UNSURE OF FATHER'S HXAUNT - - CANCER. SOCIAL HISTORY GENERAL: TOBACCO USE ARE YOU A:NONSMOKER OTHERS AT HOME: NONE. 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 DIET: CARBOHYDRATE CONTROLLED; LOW SUGAR. LANGUAGE LANGUAGES SPOKEN:BENGALI NEW PATIENT PAIN DIARY PATIENT DESCRIBES PAIN :ACHING, BURNING FROM 0-10, WHAT LEVEL IS YOUR PAIN TODAY?8 PRECIPITATING FACTORS ACTIVITY - OVER-DOING IT, EATING CERTAIN FOODS, WEATHER (AT TIMES) ALLEVIATING FACTORS DICLOFENAC IMPACT ON FUNCTION UNABLE TO DO THE THINGS HE USED TO ENJOY, DIFFICULTY WITH PERFORMING ACTIVITIES OF DAILY LIVING. RECREATIONAL DRUG USE DRUG USE?NO EXERCISE: WALKS, DAILY (ALMOST EVERY DAY). LEARNING BARRIERS / SPECIAL NEEDS BARRIERS TO LEARNING?NO HEARING IMPAIRED?YES SMALL AMOUNT OF HEARING LOSS - NO HEARING AIDS. VISION IMPAIRED?NO COGNITIVELY IMPAIRED?NO READINESS TO LEARN?YES LEARNING PREFERENCES?NO LEARNING CAPABILITIES PRESENT?YES EMOTIONAL BARRIERS?NO SPECIAL DEVICES?NO WIND FIELD MANAGER NEEDED?NO PAIN CLINIC PFS, CLERGY, PUBLIC HEALTH REFERRALS HAS THE PATIENT BEEN EDUCATED REGARDING HIS/HER PLAN OF CARE?YES HAS THE PATIENT BEEN EDUCATED REGARDING PAIN, THE RISK FOR PAIN, THE IMPORTANCE OF EFFECTIVE PAIN MANAGEMENT, AND THE PAIN ASSESSMENT PROCESS?YES LATEX QUESTIONNAIRE LATEX ALLERGY : HAVE YOU EVER DEVELOPED ANY TYPE OF REACTION AFTER HANDLING LATEX PRODUCTS SUCH RUBBER GLOVES, CONDOMS, DIAPHRAGMS, BALLOONS, SOCKS, OR UNDERWEAR?NO LATEX ALLERGY : HAVE YOU EVER DEVELOPED ANY TYPE OF REACTION DURING OR AFTER DENTAL APPOINTMENT, VAGINAL/RECTAL EXAMINATION, SURGICAL PROCEDURE, OR ANY OTHER EXPOSURE?NO DATE ASKED : 02/10/2019 LATEX RISK : HAVE YOU EVER HAD ANY DIFFICULTY BREATHING OR HIVES AFTER EATING OR HANDLING ANY FRUITS, OR VEGETABLES; SUCH KIWI, BANANAS, STONE FRUITS, OR CHESTNUTSNO LATEX RISK : DO YOU HAVE A PREVIOUS PERSONAL HISTORY OF MORE THAN NINE SURGERIES, SPINA BIFIDA, OR REPEATED CATHERIZATIONS? NO LATEX RISK : ARE YOU FREQUENTLY EXPOSED TO LATEX PRODUCTS IN YOUR OCCUPATION?NO CAFFEINE CAFFEINE USE?YES HOW OFTEN AND HOW MUCH? COFFEE- UP TO 1 POT OF COFFEE PER DAY ADVANCE DIRECTIVE ADVANCE DIRECTIVE DISCUSSED WITH PATIENT:YES PATIENT DECLINED HCP INFORMATION OR ASSISTANCE AT THIS TIME. MARITAL STATUS: SINGLE. ALCOHOL SCREENING DID YOU HAVE A DRINK CONTAINING ALCOHOL IN THE PAST YEAR?YES HOW OFTEN DID YOU HAVE SIX OR MORE DRINKS ON ONE OCCASION IN THE PAST YEAR?NEVER (0 POINTS) HOW MANY DRINKS DID YOU HAVE ON A TYPICAL DAY WHEN YOU WERE DRINKING IN THE PAST YEAR?1 OR 2 (0 POINTS) HOW OFTEN DID YOU HAVE A DRINK CONTAINING ALCOHOL IN THE PAST YEAR?MONTHLY OR LESS (1 POINT) POINTS1 INTERPRETATIONNEGATIVE OCCUPATION: DISABLED. REVIEWED WITH PATIENT 02/10/19 1534 JSREVIEWED WITH PATIENT 04/22/19 1140 LAS. HOSPITALIZATION/MAJOR DIAGNOSTIC PROCEDURE SURGERY RELATED REVIEW OF SYSTEMS REVIEWED BY: PROVIDER: SAGAR BRANCH . CONSTITUTIONAL: ANY CHANGE IN YOUR MEDICAL CONDITION? NO . CHILLS NO . FEVER NO . INFECTION: DO YOU HAVE NEW INFECTIONS? NO . DO YOU HAVE HISTORY OF MRSA? NO . MUSCULOSKELETAL: ANY NEW PATTERNS OF PAIN OR NUMBNESS? YES PT REPORTS PAIN IS DIFFERENT EVERY DAY, RATES IT 3-10, BUT GENERALLY DOING WELL ON MEDICATIONS . GASTROENTEROLOGY: ANY NEW CHANGE IN BOWEL CONTROL? NO . GENITOURINARY: ANY NEW CHANGE IN BLADDER CONTROL? NO . IS THERE A CHANCE YOU COULD BE ? NO . HEMATOLOGY/LYMPH: DO YOU TAKE ANY BLOOD THINNERS? (FOR EXAMPLE- COUMADIN, PLAVIX, AGGRENOX, PLATEL, PRADAXA, OR XARELTO) NO . WHEN WAS YOUR LAST DOSE? DATE: TIME: . NEUROLOGY: HAVE YOU FALLEN IN THE PAST 12 MONTHS? NO . ANY NEW EXTREMITY NUMBNESS OR WEAKNESS? NO . CARDIOLOGY: DO YOU HAVE A PACEMAKER OR DEFIBRILLATOR? NO . RESPIRATORY: HAVE YOU BEEN SICK IN THE PAST WEEK? NO . FEVER NO . FLU LIKE SYMPTOMS? NO . COUGH NO . INTEGUMENTARY: DO YOU HAVE ANY RASHES OR OPEN SORES? NO . ALLERGIC/IMMUNO: ARE YOU ALLERGIC TO IV DYE? YES NAUSEA/ VOMITING . ANY NEW ALLERGIES? NO . PSYCHIATRIC: DO YOU HAVE THOUGHTS OF HURTING YOURSELF OR SOMEONE ELSE? NO . ARE YOU ABUSED, NEGLECTED, OR IN AN UNSAFE ENVIRONMENT? NO . ENDOCRINOLOGY: ARE YOU DIABETIC? YES . OTHER: DO YOU NEED ANY PRESCRIPTIONS? YES . IF YES, PLEASE LIST: ____DICLOFENAC, CYMBALTA . ANY NEW PROBLEMS WITH YOUR MEDICATIONS? NO . WHEN DID YOU LAST EAT? ____ . WHEN DID YOU LAST DRINK? ____ . WHAT DID YOU LAST DRINK? ____ . NAME OF PERSON DRIVING YOU HOME? ____ . DO YOU HAVE ANY OTHER QUESTIONS OR CONCERNS NO . VITAL SIGNS WT 374.4 LBS, HT 75 IN, BMI 46.79 INDEX, BP 141/78 MM HG, HR 79 /MIN, RR 20 /MIN, TEMP 96.6 F, OXYGEN SAT % 97%, NA INITIALS SC 11:12. EXAMINATION GENERAL EXAMINATION: GENERALNO ACUTE DISTRESS, WELL NOURISHED AND HYDRATED. PSYCHAPPROPRIATE MOOD AND AFFECT . LUNGS:CLEAR TO AUSCULTATION BILATERALLY, NO WHEEZES, RHONCHI, RALES. HEART:NO MURMURS, REGULAR RATE AND RHYTHM. ASSESSMENTS PAIN OF MULTIPLE SITES - R52 (PRIMARY) TREATMENT PAIN OF MULTIPLE SITES REFILL DICLOFENAC SODIUM ER TABLET EXTENDED RELEASE 24 HOUR, 100 MG, 1 TABLET WITH FOOD OR MILK, ORAL, THREE TIMES DAILY NEEDED FOR PAIN, 90 DAYS, 270 REFILL CYMBALTA CAPSULE DELAYED RELEASE PARTICLES, 30 MG, 1 CAPSULE, ORALLY WITH FOOD, ONCE A DAY FOR PAIN, 90 DAY(S), 90, REFILLS 1 CLINICAL NOTES: 54-YEAR-OLD MALE IN FOR CHRONIC PAIN FOLLOW-UP. GIVEN PRESENTING SYMPTOMS AND RESULTS OF PHYSICAL EXAMINATION RECOMMENDED FOLLOW-UP IN 3 MONTHS AND CONTINUATION OF CURRENT MEDICATION REGIMEN. PATIENT HAS EXPRESSED UNDERSTANDING OF AND WAS IN AGREEMENT WITH TREATMENT PLAN. GIVEN TIME TO ASK QUESTIONS AND EXPRESS CONCERNS. PROCEDURE CODES FA211 ESTABILISHED PATIENT [facility] CHARGE DISPOSITION & COMMUNICATION FOLLOW UP 3 MONTHS (REASON: CHRONIC PAIN) ELECTRONICALLY SIGNED BY NICK THOMPSON ON 04/23/2019 AT 09:36 AM EDT DISCLAIMER : THIS IS A VISIT SUMMARY EXTRACTED FROM THE [employer] CHART. IT IS NOT A COPY OF THE [employer] PROGRESS NOTE. PEG
== END ==
LOC: M PAIN 11:15
PROVIDERS: ATTEND Family Medicine
DX: G89.29 Other chronic pain (principal); E11.9 Type 2 diabetes mellitus without complications; M19.90 Unspecified osteoarthritis, unspecified site; Z96.641 Presence of right artificial hip joint; Z88.5 Allergy status to narcotic agent; E66.01 Morbid (severe) obesity due to excess calories; Z68.42 Body mass index [BMI] 45.0-49.9, adult; Z79.899 Other long term (current) drug therapy

== ENCOUNTER → 2019-06-09 | Outpatient (CLI) | payer OTHER ==
[2019-06-09 08:35] LABS: BASO # 0.1 10^3/uL (0.0-0.2); BASO % 0.9 % (0.0-1.0); EOS # 0.3 10^3/uL (0.0-0.5); EOS % 3.1 % (0.0-3.0); HEMATOCRIT 44.8 % (42.0-52.0); HEMOGLOBIN 15.5 g/dl (13.5-17.5); LYMPH # 2.2 10^3/uL (1.5-5.0); LYMPH % 27.1 % (24.0-44.0); MEAN CORPUSCULAR HEMOGLOBIN 31.5 pg (27.0-33.0); MEAN CORPUSCULAR HGB CONC 34.6 g/dl (32.0-36.5); MEAN CORPUSCULAR VOLUME 91.1 fl (80.0-96.0); MONO # 0.7 10^3/uL (0.0-0.8); MONO % 8.8 % (0.0-5.0); NEUTROPHILS # 4.8 10^3/uL (1.5-8.5); NEUTROPHILS % 59.7 % (36.0-66.0); PLATELET COUNT, AUTOMATED 264 10^3/uL (150-450); RED BLOOD COUNT 4.92 10^6/uL (4.30-6.10)
[2019-06-09 09:12] LABS: ALBUMIN 3.9 GM/DL (3.2-5.2); ALT/SGPT 37 U/L (12-78); BILIRUBIN,TOTAL 0.7 MG/DL (0.2-1.0); BLOOD UREA NITROGEN 21 MG/DL (7-18); CALCIUM LEVEL 9.4 MG/DL (8.5-10.1); CARBON DIOXIDE LEVEL 25 MEQ/L (21-32); CHLORIDE LEVEL 107 MEQ/L (98-107); CHOLESTEROL LEVEL 253 MG/DL (<200); CHOLESTEROL RISK RATIO 4.216 (<5); CREATININE FOR GFR 0.95 MG/DL (0.70-1.30); GLOMERULAR FILTRATION RATE > 60.0 (>56); GLUCOSE, FASTING 144 MG/DL (70-100); HDL CHOLESTEROL 60 MG/DL (>40); LDL CHOLESTEROL 154 MG/DL (<100); NON-HDL-C 193 MG/DL; POTASSIUM SERUM 4.3 MEQ/L (3.5-5.1); SODIUM LEVEL 141 MEQ/L (136-145); TOTAL PROTEIN 7.6 GM/DL (6.4-8.2); TRIGLYCERIDES LEVEL 194 MG/DL (<150)
[2019-06-09 10:18] LABS: HEMOGLOBIN A1c 7.2 %
[2019-06-10 14:16] LABS: PSA TOTAL 0.3 ng/mL (0.0-4.0)
== END ==
LOC: M LAB 07:55
PROVIDERS: ATTEND Nurse Practitioner Adult Health
DX: E11.65 Type 2 diabetes mellitus with hyperglycemia (principal)

== ENCOUNTER → 2019-07-23 | Outpatient (CLI) | payer OTHER ==
--- NOTE | 2019-07-27 06:15 | ECWPNPC ---
PATIENT NAME: ELIANA DICK : 1965 GENDER: MALE VISIT DATE: 07/23/2019 DISCHARGE DATE: 07/23/19900 VISIT LOCKED DATE TIME: PHYSICIAN: LUIS ROLAND RESOURCE: LUIS ROLAND REASON FOR APPOINTMENT 1. CHRONIC PAIN-UPDATE DICLOFENAC ON MED LIST TO DAILY HISTORY OF PRESENT ILLNESS HISTORY OF PRESENT ILLNESS: PAIN THE PATIENT DESCRIBES THE PAIN... 54-YEAR-OLD MALE IN FOR CHRONIC PAIN FOLLOW-UP. HE RATES HIS PAIN CURRENTLY AT A 4 OUT OF 10 AND DESCRIBES IT ACHING, AND SORE. HE FURTHER STATES HE IS STIFF. HE WAS RECENTLY GIVEN DICLOFENAC BY ANOTHER MANUFACTURE AND STATES THIS MEDICATION WAS INEFFECTIVE IN ALLEVIATING HIS SYMPTOMS HOWEVER, SINCE THAT TIME HE HAS ACQUIRED DICLOFENAC FROM HIS PREVIOUS MANUFACTURE AND STATES THIS MEDICATION IS WORKING WELL CURRENTLY. FALL RISK SCREENING: SCREENING :NO FALLS REPORTED IN THE LAST YEAR CURRENT MEDICATIONS TAKING TRULICITY 1.5 MG/0.5ML SOLUTION PEN-INJECTOR SUBCUTANEOUS 1 TIME WEEKLY TAKING ONETOUCH VERIO - STRIP IN VITRO TAKING CYMBALTA 30 MG CAPSULE DELAYED RELEASE PARTICLES 1 CAPSULE ORALLY WITH FOOD ONCE A DAY FOR PAIN TAKING DICLOFENAC SODIUM ER 100 MG TABLET EXTENDED RELEASE 24 HOUR 1 TABLET WITH FOOD OR MILK ORALLY ONCE A DAY TAKING VITAMIN D (ERGOCALCIFEROL) 1.25 MG (45662 UT) CAPSULE 1 CAPSULE ORALLY WEEKLY MEDICATION LIST REVIEWED AND RECONCILED WITH THE PATIENT PAST MEDICAL HISTORY DIABETES MELLITUS ARTHRITIS DEGENERATIVE DISC DISEASE HIP PAIN ALLERGIES TRAMADOL HCL: ANXIETY/AGGRESSION - SIDE EFFECTS HYDROCODONE-ACETAMINOPHEN: ANXIETY/AGGRESSION - SIDE EFFECTS SURGICAL HISTORY RIGHT HIP REPLACEMENT 2010 APPENDECTOMY HIPS PINNED BILATERALLY AGE 12-14 FAMILY HISTORY MOTHER: ALIVE 83 YRS, RHEUMATOID ARTHRITIS, DIAGNOSED WITH DIABETES MATERNAL GRAND MOTHER: RHEUMATOID ARTHRITIS 2 SISTER(S) . UNSURE OF FATHER'S HXAUNT - - CANCER. SOCIAL HISTORY GENERAL: TOBACCO USE ARE YOU A:NONSMOKER OTHERS AT HOME: NONE. 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 DIET: CARBOHYDRATE CONTROLLED; LOW SUGAR. LANGUAGE LANGUAGES SPOKEN:YORUBA NEW PATIENT PAIN DIARY PATIENT DESCRIBES PAIN :ACHING, BURNING FROM 0-10, WHAT LEVEL IS YOUR PAIN TODAY?8 PRECIPITATING FACTORS ACTIVITY - OVER-DOING IT, EATING CERTAIN FOODS, WEATHER (AT TIMES) ALLEVIATING FACTORS DICLOFENAC IMPACT ON FUNCTION UNABLE TO DO THE THINGS HE USED TO ENJOY, DIFFICULTY WITH PERFORMING ACTIVITIES OF DAILY LIVING. RECREATIONAL DRUG USE DRUG USE?NO EXERCISE: WALKS, DAILY (ALMOST EVERY DAY). LEARNING BARRIERS / SPECIAL NEEDS CHANGE FROM LAST VISIT?NO BARRIERS TO LEARNING?NO HEARING IMPAIRED?YES SMALL AMOUNT OF HEARING LOSS - NO HEARING AIDS. VISION IMPAIRED?NO COGNITIVELY IMPAIRED?NO READINESS TO LEARN?YES LEARNING PREFERENCES?NO LEARNING CAPABILITIES PRESENT?YES EMOTIONAL BARRIERS?NO SPECIAL DEVICES?NO SHINGLES ROOFER HELPER NEEDED?NO PAIN CLINIC PFS, CLERGY, PUBLIC HEALTH REFERRALS HAS THE PATIENT BEEN EDUCATED REGARDING HIS/HER PLAN OF CARE?YES HAS THE PATIENT BEEN EDUCATED REGARDING PAIN, THE RISK FOR PAIN, THE IMPORTANCE OF EFFECTIVE PAIN MANAGEMENT, AND THE PAIN ASSESSMENT PROCESS?YES LATEX QUESTIONNAIRE LATEX ALLERGY : HAVE YOU EVER DEVELOPED ANY TYPE OF REACTION AFTER HANDLING LATEX PRODUCTS SUCH RUBBER GLOVES, CONDOMS, DIAPHRAGMS, BALLOONS, SOCKS, OR UNDERWEAR?NO LATEX ALLERGY : HAVE YOU EVER DEVELOPED ANY TYPE OF REACTION DURING OR AFTER DENTAL APPOINTMENT, VAGINAL/RECTAL EXAMINATION, SURGICAL PROCEDURE, OR ANY OTHER EXPOSURE?NO DATE ASKED : 02/10/2019 LATEX RISK : HAVE YOU EVER HAD ANY DIFFICULTY BREATHING OR HIVES AFTER EATING OR HANDLING ANY FRUITS, OR VEGETABLES; SUCH KIWI, BANANAS, STONE FRUITS, OR CHESTNUTSNO LATEX RISK : DO YOU HAVE A PREVIOUS PERSONAL HISTORY OF MORE THAN NINE SURGERIES, SPINA BIFIDA, OR REPEATED CATHERIZATIONS? NO LATEX RISK : ARE YOU FREQUENTLY EXPOSED TO LATEX PRODUCTS IN YOUR OCCUPATION?NO CAFFEINE CAFFEINE USE?YES HOW OFTEN AND HOW MUCH? COFFEE- UP TO 1 POT OF COFFEE PER DAY ADVANCE DIRECTIVE ADVANCE DIRECTIVE DISCUSSED WITH PATIENT:YES PATIENT DECLINED HCP INFORMATION OR ASSISTANCE AT THIS TIME. 07/23/2019 MARITAL STATUS: SINGLE. ALCOHOL SCREENING DID YOU HAVE A DRINK CONTAINING ALCOHOL IN THE PAST YEAR?YES HOW OFTEN DID YOU HAVE SIX OR MORE DRINKS ON ONE OCCASION IN THE PAST YEAR?NEVER (0 POINTS) HOW MANY DRINKS DID YOU HAVE ON A TYPICAL DAY WHEN YOU WERE DRINKING IN THE PAST YEAR?1 OR 2 (0 POINTS) HOW OFTEN DID YOU HAVE A DRINK CONTAINING ALCOHOL IN THE PAST YEAR?MONTHLY OR LESS (1 POINT) POINTS1 INTERPRETATIONNEGATIVE OCCUPATION: DISABLED. REVIEWED WITH PATIENT 02/10/19 1534 JSREVIEWED WITH PATIENT 04/22/19 1140 LASREVIEWED WITH PATIENT 07/23/2019 LAS. HOSPITALIZATION/MAJOR DIAGNOSTIC PROCEDURE SURGERY RELATED REVIEW OF SYSTEMS REVIEWED BY: PROVIDER: CHRISTOPHER LUAN TIMBER RIDER-C . CONSTITUTIONAL: ANY CHANGE IN YOUR MEDICAL CONDITION? NO . CHILLS NO . FEVER NO . INFECTION: DO YOU HAVE NEW INFECTIONS? NO . DO YOU HAVE HISTORY OF MRSA? NO . MUSCULOSKELETAL: ANY NEW PATTERNS OF PAIN OR NUMBNESS? NO . GASTROENTEROLOGY: ANY NEW CHANGE IN BOWEL CONTROL? NO . GENITOURINARY: ANY NEW CHANGE IN BLADDER CONTROL? NO . IS THERE A CHANCE YOU COULD BE ? NO . HEMATOLOGY/LYMPH: DO YOU TAKE ANY BLOOD THINNERS? (FOR EXAMPLE- COUMADIN, PLAVIX, AGGRENOX, PLATEL, PRADAXA, OR XARELTO) NO . WHEN WAS YOUR LAST DOSE? DATE: TIME: . NEUROLOGY: HAVE YOU FALLEN IN THE PAST 12 MONTHS? NO . ANY NEW EXTREMITY NUMBNESS OR WEAKNESS? NO . CARDIOLOGY: DO YOU HAVE A PACEMAKER OR DEFIBRILLATOR? NO . RESPIRATORY: HAVE YOU BEEN SICK IN THE PAST WEEK? YES PT REPORTS SOME CHEST CONGESTION/COUGHING. DENIES FEVER, ACHES OR OTHER SYMPTOMS . FEVER NO . FLU LIKE SYMPTOMS? NO . COUGH NO . INTEGUMENTARY: DO YOU HAVE ANY RASHES OR OPEN SORES? NO . ALLERGIC/IMMUNO: ARE YOU ALLERGIC TO IV DYE? NO . ANY NEW ALLERGIES? NO . PSYCHIATRIC: DO YOU HAVE THOUGHTS OF HURTING YOURSELF OR SOMEONE ELSE? NO . ARE YOU ABUSED, NEGLECTED, OR IN AN UNSAFE ENVIRONMENT? NO . ENDOCRINOLOGY: ARE YOU DIABETIC? YES . OTHER: DO YOU NEED ANY PRESCRIPTIONS? NO . IF YES, PLEASE LIST: ____ . ANY NEW PROBLEMS WITH YOUR MEDICATIONS? NO . WHEN DID YOU LAST EAT? ____ . WHEN DID YOU LAST DRINK? ____ . WHAT DID YOU LAST DRINK? ____ . NAME OF PERSON DRIVING YOU HOME? ____ . DO YOU HAVE ANY OTHER QUESTIONS OR CONCERNS NO . VITAL SIGNS WT 377.0 LBS, HT 75 IN, BMI 47.12 INDEX, BP 131/89 MM HG, HR 97 /MIN, RR 18 /MIN, TEMP 96.8 F, OXYGEN SAT % 96%, SAFE IN ENV? (Y/N) YES, NA INITIALS AW 0836, REVIEWED BY: DUSTIN. EXAMINATION GENERAL EXAMINATION: GENERALNO ACUTE DISTRESS, WELL NOURISHED AND HYDRATED. PSYCHAPPROPRIATE MOOD AND AFFECT . LUNGS:CLEAR TO AUSCULTATION BILATERALLY, NO WHEEZES, RHONCHI, RALES. HEART:NO MURMURS, REGULAR RATE AND RHYTHM. ASSESSMENTS PAIN IN RIGHT HIP - M25.551 (PRIMARY) PAIN IN RIGHT KNEE - M25.561 PAIN IN LEFT KNEE - M25.562 TREATMENT PAIN IN RIGHT HIP CLINICAL NOTES: 54-YEAR-OLD MALE IN FOR CHRONIC PAIN FOLLOW-UP. GIVEN PRESENTING SYMPTOMS AND RESULTS OF PHYSICAL EXAMINATION RECOMMENDED CONTINUATION OF CURRENT MEDICATION REGIMEN WITH FOLLOW-UP IN 3 MONTHS. PATIENT HAS EXPRESSED UNDERSTANDING OF AND WAS IN AGREEMENT WITH TREATMENT PLAN. GIVEN TIME TO ASK QUESTIONS AND EXPRESS CONCERNS. PROCEDURE CODES FA211 ESTABILISHED PATIENT [facility] CHARGE DISPOSITION & COMMUNICATION FOLLOW UP 3 MONTHS (REASON: CHRONIC PAIN) ELECTRONICALLY SIGNED BY NICK THOMPSON ON 07/26/2019 AT 08:11 AM EST DISCLAIMER : THIS IS A VISIT SUMMARY EXTRACTED FROM THE [employer] CHART. IT IS NOT A COPY OF THE [employer] PROGRESS NOTE. PEG
== END ==
LOC: M PAIN 08:45
PROVIDERS: ATTEND Family Medicine
DX: M25.551 Pain in right hip (principal); M25.561 Pain in right knee; M25.562 Pain in left knee

== ENCOUNTER → 2019-09-15 | Outpatient (CLI) | payer OTHER ==
[2019-09-15 15:22] LABS: BASO # 0.1 10^3/uL (0.0-0.2); BASO % 0.7 % (0.0-1.0); EOS # 0.2 10^3/uL (0.0-0.5); EOS % 2.3 % (0.0-3.0); HEMATOCRIT 44.7 % (42.0-52.0); HEMOGLOBIN 15.4 g/dl (13.5-17.5); LYMPH # 2.7 10^3/uL (1.5-5.0); LYMPH % 29.7 % (24.0-44.0); MEAN CORPUSCULAR HEMOGLOBIN 31.6 pg (27.0-33.0); MEAN CORPUSCULAR HGB CONC 34.5 g/dl (32.0-36.5); MEAN CORPUSCULAR VOLUME 91.6 fl (80.0-96.0); MONO # 0.9 10^3/uL (0.0-0.8); MONO % 9.7 % (0.0-5.0); NEUTROPHILS # 5.3 10^3/uL (1.5-8.5); NEUTROPHILS % 57.1 % (36.0-66.0); PLATELET COUNT, AUTOMATED 255 10^3/uL (150-450); RED BLOOD COUNT 4.88 10^6/uL (4.30-6.10); WHITE BLOOD COUNT 9.2 10^3/uL (4.0-10.0)
[2019-09-15 15:54] LABS: HEMOGLOBIN A1c 7.8 %
[2019-09-15 15:57] LABS: ALBUMIN 3.9 GM/DL (3.2-5.2); ALT/SGPT 37 U/L (12-78); BILIRUBIN,TOTAL 0.8 MG/DL (0.2-1.0); BLOOD UREA NITROGEN 19 MG/DL (7-18); CALCIUM LEVEL 9.6 MG/DL (8.5-10.1); CARBON DIOXIDE LEVEL 29 MEQ/L (21-32); CHLORIDE LEVEL 103 MEQ/L (98-107); CHOLESTEROL LEVEL 247 MG/DL (<200); CREATININE FOR GFR 0.93 MG/DL (0.70-1.30); GLOMERULAR FILTRATION RATE > 60.0 (>56); GLUCOSE, FASTING 141 MG/DL (70-100); HDL CHOLESTEROL 55 MG/DL (>40); LDL CHOLESTEROL 138 MG/DL (<100); NON-HDL-C 192 MG/DL; POTASSIUM SERUM 4.2 MEQ/L (3.5-5.1); SODIUM LEVEL 139 MEQ/L (136-145); TOTAL PROTEIN 7.4 GM/DL (6.4-8.2); TRIGLYCERIDES LEVEL 272 MG/DL (<150)
[2019-09-17 14:09] LABS: PSA TOTAL 0.2 ng/mL (0.0-4.0)
== END ==
LOC: M LAB 14:48
PROVIDERS: ATTEND Nurse Practitioner Adult Health
DX: E11.65 Type 2 diabetes mellitus with hyperglycemia (principal)

== ENCOUNTER → 2019-12-22 | Outpatient (CLI) | payer OTHER ==
--- NOTE | 2019-12-24 03:48 | ECWPNPC ---
PATIENT NAME: ELIANA DICK : 1965 GENDER: MALE VISIT DATE: 12/22/2019 DISCHARGE DATE: 12/22/19 1036 VISIT LOCKED DATE TIME: PHYSICIAN: LUIS ROLAND RESOURCE: LUIS ROLAND REASON FOR APPOINTMENT 1. CHRONIC PAIN PAT DONE HISTORY OF PRESENT ILLNESS GENERAL: -PERMISSION REQUESTED AND RECEIVED FROM PATIENT TO PERFORM TELEPHONE VISIT. 54 YEAR OLD MALE IN FOR CHRONIC PAIN FOLLOW UP. AT LAST CLINIC VISIT HE WAS STARTED ON TIZANIDINE AND ADMITS TODAY THAT THIS HAS BEEN HELPFUL. HE RATES HIS PAIN CURRENTLY AT A 1-2/10 AND DESCRIBES IT SHOOTING. HE FEELS HIS MEDICATIONS ARE HELPFUL AND DENIES MED SIDE EFFECTS AT THIS TIME. PAIN SCREENING: PATIENT HAS A COMPLAINT OF ACUTE OR CHRONIC PAIN :YES LOCATION OF PAIN:LOW BACK RADIATES DOWN TO LEFT KNEE TO BUTTOCKS INTENSITY OF PAIN (SCALE OF 1 TO 10):2 PAIN WAS 8-9/10 ON 12/20/19 WHAT DOES YOUR PAIN FEEL LIKE:INTERMITTENT, SHOOTING DURATION:INTERMITTENT PAIN IS INCREASED BY:ACTIVITIES, PROLONGED STANDING WALKING PAIN IS DECREASED BY:OTHERS TIZANIDINE AT BEDTIME HELPS WITH SLEEP PLAN/GOALS/TREATMENT/INTERVENTION/FOLLOW UP:SEE PLAN FALL RISK SCREENING: SCREENING :NO FALLS REPORTED IN THE LAST YEAR DEPRESSION SCREENING: PHQ-2 (2015 EDITION) LITTLE INTEREST OR PLEASURE IN DOING THINGS?NOT AT ALL FEELING DOWN, DEPRESSED, OR HOPELESS?NOT AT ALL TOTAL SCORE0 PAIN CENTER INTAKE QUESTIONS: DO YOU HAVE A HISTORY OF MRSA? :NO DO YOU TAKE A BLOOD THINNERS? :NO DO YOU HAVE ANY BLEEDING DISORDERS? :NO ANY NEW NUMBNESS OR WEAKNESS IN YOUR LEGS OR ARMS? :NO ANY PACEMAKER,DEFIBRILLATOR, OR DORSAL COLUMN STIMULATOR? :NO DO YOU HAVE ANY RASHES OR OPEN SORES? :NO ARE YOU ALLERGIC TO IV DYE? :NO ARE YOU DIABETIC? :YES ANY NEW PROBLEMS WITH YOUR MEDICATIONS? :NO HAVE YOU RECEIVED A VACCINE IN THE PAST 30 DAYS? :NO DO YOU PLAN TO RECEIVE A VACCINE IN THE NEXT 21 DAYS? :NO DO YOU NEED ANY PRESCRIPTION? :NO DO YOU TAKE ANY IMMUNOSUPPRESSIVE MEDICATIONS? :NO NURSING NOTE: -. CURRENT MEDICATIONS TAKING TRULICITY 1.5 MG/0.5ML SOLUTION PEN-INJECTOR SUBCUTANEOUS 1 TIME WEEKLY TAKING ONETOUCH VERIO - STRIP IN VITRO TAKING VITAMIN D (ERGOCALCIFEROL) 1.25 MG (06767 UT) CAPSULE 1 CAPSULE ORALLY WEEKLY TAKING DICLOFENAC SODIUM ER 100 MG TABLET EXTENDED RELEASE 24 HOUR 1 TABLET WITH FOOD OR MILK ORALLY ONCE A DAY TAKING TIZANIDINE HCL 4 MG TABLET 1 TABLET NEEDED ORALLY PRN HS TAKING CYMBALTA 30 MG CAPSULE DELAYED RELEASE PARTICLES 1 CAPSULE ORALLY WITH FOOD ONCE A DAY FOR PAIN MEDICATION LIST REVIEWED AND RECONCILED WITH THE PATIENT PAST MEDICAL HISTORY DIABETES MELLITUS ARTHRITIS DEGENERATIVE DISC DISEASE HIP PAIN ALLERGIES TRAMADOL HCL: ANXIETY/AGGRESSION - SIDE EFFECTS HYDROCODONE-ACETAMINOPHEN: ANXIETY/AGGRESSION - SIDE EFFECTS SURGICAL HISTORY RIGHT HIP REPLACEMENT 2010 APPENDECTOMY HIPS PINNED BILATERALLY AGE 12-14 FAMILY HISTORY MOTHER: ALIVE 83 YRS, RHEUMATOID ARTHRITIS, DIAGNOSED WITH DIABETES MATERNAL GRAND MOTHER: RHEUMATOID ARTHRITIS 2 SISTER(S) . UNSURE OF FATHER'S HXAUNT - - CANCER. SOCIAL HISTORY GENERAL: TOBACCO USE ARE YOU A:NONSMOKER LATEX QUESTIONNAIRE LATEX ALLERGY : HAVE YOU EVER DEVELOPED ANY TYPE OF REACTION AFTER HANDLING LATEX PRODUCTS SUCH RUBBER GLOVES, CONDOMS, DIAPHRAGMS, BALLOONS, SOCKS, OR UNDERWEAR?NO LATEX ALLERGY : HAVE YOU EVER DEVELOPED ANY TYPE OF REACTION DURING OR AFTER DENTAL APPOINTMENT, VAGINAL/RECTAL EXAMINATION, SURGICAL PROCEDURE, OR ANY OTHER EXPOSURE?NO LATEX RISK : HAVE YOU EVER HAD ANY DIFFICULTY BREATHING OR HIVES AFTER EATING OR HANDLING ANY FRUITS, OR VEGETABLES; SUCH KIWI, BANANAS, STONE FRUITS, OR CHESTNUTSNO LATEX RISK : DO YOU HAVE A PREVIOUS PERSONAL HISTORY OF MORE THAN NINE SURGERIES, SPINA BIFIDA, OR REPEATED CATHERIZATIONS? NO LATEX RISK : ARE YOU FREQUENTLY EXPOSED TO LATEX PRODUCTS IN YOUR OCCUPATION?NO DATE ASKED : 12/21/2019 ALCOHOL SCREENING DID YOU HAVE A DRINK CONTAINING ALCOHOL IN THE PAST YEAR?YES HOW OFTEN DID YOU HAVE SIX OR MORE DRINKS ON ONE OCCASION IN THE PAST YEAR?NEVER (0 POINTS) HOW MANY DRINKS DID YOU HAVE ON A TYPICAL DAY WHEN YOU WERE DRINKING IN THE PAST YEAR?1 OR 2 (0 POINTS) HOW OFTEN DID YOU HAVE A DRINK CONTAINING ALCOHOL IN THE PAST YEAR?MONTHLY OR LESS (1 POINT) POINTS1 INTERPRETATIONNEGATIVE RECREATIONAL DRUG USE DRUG USE?NO CAFFEINE CAFFEINE USE?YES HOW OFTEN AND HOW MUCH? 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 LEARNING BARRIERS / SPECIAL NEEDS CHANGE FROM LAST VISIT?NO BARRIERS TO LEARNING?NO HEARING IMPAIRED?YES SMALL AMOUNT OF HEARING LOSS - NO HEARING AIDS. VISION IMPAIRED?NO COGNITIVELY IMPAIRED?NO READINESS TO LEARN?YES LEARNING PREFERENCES?NO LEARNING CAPABILITIES PRESENT?YES EMOTIONAL BARRIERS?NO SPECIAL DEVICES?NO WAREHOUSE LOGISTICS MANAGER NEEDED?NO OCCUPATION: DISABLED. DIET: CARBOHYDRATE CONTROLLED; LOW SUGAR. EXERCISE: WALKS, DAILY (ALMOST EVERY DAY). MARITAL STATUS: SINGLE. OTHERS AT HOME: NONE. NEW PATIENT PAIN DIARY PATIENT DESCRIBES PAIN :ACHING, BURNING FROM 0-10, WHAT LEVEL IS YOUR PAIN TODAY?8 PRECIPITATING FACTORS ACTIVITY - OVER-DOING IT, EATING CERTAIN FOODS, WEATHER (AT TIMES) ALLEVIATING FACTORS DICLOFENAC IMPACT ON FUNCTION UNABLE TO DO THE THINGS HE USED TO ENJOY, DIFFICULTY WITH PERFORMING ACTIVITIES OF DAILY LIVING. PAIN CLINIC PFS, CLERGY, PUBLIC HEALTH REFERRALS HAS THE PATIENT BEEN EDUCATED REGARDING HIS/HER PLAN OF CARE?YES HAS THE PATIENT BEEN EDUCATED REGARDING PAIN, THE RISK FOR PAIN, THE IMPORTANCE OF EFFECTIVE PAIN MANAGEMENT, AND THE PAIN ASSESSMENT PROCESS?YES ADVANCE DIRECTIVE ADVANCE DIRECTIVE DISCUSSED WITH PATIENT:YES PATIENT DECLINED HCP INFORMATION OR ASSISTANCE AT THIS TIME. 07/23/2019 HOSPITALIZATION/MAJOR DIAGNOSTIC PROCEDURE SURGERY RELATED REVIEW OF SYSTEMS CONSTITUTIONAL: ANY RECENT FEVER OR ILLNESS NO . CHILLS NO . GASTROENTEROLOGY: BOWEL INCONTINENCE NO . ANY NEW CHANGE IN BOWEL CONTROL? NO . ABDOMINAL PAIN NO . CONSTIPATION NO . GENITOURINARY: ANY NEW CHANGE IN BLADDER CONTROL? NO . URINARY INCONTINENCE NO . CARDIOLOGY: CHEST PRESSURE NO . CHEST PAIN NO . RESPIRATORY: COUGH NO . SHORTNESS OF BREATH NO . EXAMINATION GENERAL EXAMINATION: PSYCHAPPROPRIATE MOOD AND AFFECT , ORIENTED X 3. ASSESSMENTS PAIN OF MULTIPLE SITES - R52 (PRIMARY) TREATMENT PAIN OF MULTIPLE SITES CLINICAL NOTES: 54 YEAR OLD MALE IN FOR CHRONIC PAIN FOLLOW UP. GIVEN PRESENTING SYMPTOMS RECOMMEND CONTINUATION OF CURRENT MEDICATION REGIMEN WITH FOLLOW UP IN 3 MONTHS. PATIENT HAS EXPRESSED UNDERSTANDING OF AND WAS IN AGREEMENT WITH TX PLAN. GIVEN TIME TO ASK QUESITONS AND EXPRESS CONCERNS. VISIT TO BE BILLED BASED ON TIME SPENT WITH PATIENT. TIME SPENT WITH PATIENT 11 MINUTES. OTHERS NOTES: VITALS NOT OBTAINED DUE TO PHONE VISIT, PRE-SCREENING COMPLETED, 12/21/19,NA. DISPOSITION & COMMUNICATION FOLLOW UP 3 MONTHS (REASON: CHRONIC PAIN) ELECTRONICALLY SIGNED BY NICK THOMPSON ON 12/23/2019 AT 08:35 AM EDT DISCLAIMER : THIS IS A VISIT SUMMARY EXTRACTED FROM THE [employer] CHART. IT IS NOT A COPY OF THE [employer] PROGRESS NOTE. MTDD
== END ==
LOC: M PAIN 09:15
PROVIDERS: ATTEND Family Medicine
DX: R52 Pain, unspecified (principal)

== ENCOUNTER → 2020-06-05 | Outpatient (CLI) | payer OTHER ==
[2020-06-05 10:26] LABS: BASO % 0.4 % (0.0-1.0); EOS # 0.1 10^3/uL (0.0-0.5); EOS % 1.4 % (0.0-3.0); HEMATOCRIT 43.5 % (42.0-52.0); HEMOGLOBIN 14.4 g/dl (13.5-17.5); LYMPH # 2.3 10^3/uL (1.5-5.0); LYMPH % 31.1 % (24.0-44.0); MEAN CORPUSCULAR HEMOGLOBIN 30.8 pg (27.0-33.0); MEAN CORPUSCULAR HGB CONC 33.1 g/dl (32.0-36.5); MEAN CORPUSCULAR VOLUME 92.9 fl (80.0-96.0); MONO # 0.7 10^3/uL (0.0-0.8); MONO % 9.7 % (0.0-5.0); NEUTROPHILS # 4.2 10^3/uL (1.5-8.5); PLATELET COUNT, AUTOMATED 240 10^3/uL (150-450); RED BLOOD COUNT 4.68 10^6/uL (4.30-6.10); WHITE BLOOD COUNT 7.4 10^3/uL (4.0-10.0)
[2020-06-05 11:02] LABS: ALBUMIN 3.9 GM/DL (3.2-5.2); ALT/SGPT 30 U/L (12-78); BILIRUBIN,TOTAL 0.7 MG/DL (0.2-1.0); BLOOD UREA NITROGEN 22 MG/DL (7-18); CALCIUM LEVEL 9.3 MG/DL (8.5-10.1); CARBON DIOXIDE LEVEL 28 MEQ/L (21-32); CHLORIDE LEVEL 106 MEQ/L (98-107); CHOLESTEROL LEVEL 227 MG/DL (<200); CHOLESTEROL RISK RATIO 4.365 (<5); CREATININE FOR GFR 0.96 MG/DL (0.70-1.30); GLOMERULAR FILTRATION RATE > 60.0 (>56); GLUCOSE, FASTING 158 MG/DL (70-100); HDL CHOLESTEROL 52 MG/DL (>40); LDL CHOLESTEROL 140 MG/DL (<100); MAGNESIUM LEVEL 1.9 MG/DL (1.8-2.4); NON-HDL-C 175 MG/DL; POTASSIUM SERUM 4.4 MEQ/L (3.5-5.1); SODIUM LEVEL 140 MEQ/L (136-145); TOTAL PROTEIN 7.3 GM/DL (6.4-8.2); TRIGLYCERIDES LEVEL 174 MG/DL (<150)
[2020-06-05 11:06] LABS: HEMOGLOBIN A1c 7.4 %
[2020-06-05 11:30] LABS: TOTAL 25(OH) VITAMIN D 47.5 NG/ML (30.0-100.0)
== END ==
LOC: M LAB 09:21
PROVIDERS: ATTEND Nurse Practitioner Adult Health
DX: E11.65 Type 2 diabetes mellitus with hyperglycemia (principal); E78.00 Pure hypercholesterolemia, unspecified; E55.9 Vitamin D deficiency, unspecified; E78.1 Pure hyperglyceridemia; G89.4 Chronic pain syndrome

== ENCOUNTER → 2020-10-26 | Outpatient (CLI) | payer OTHER ==
--- NOTE | 2020-10-31 01:30 | ECWPNPC ---
PATIENT NAME: ELIANA DICK : 1965 GENDER: MALE VISIT DATE: 10/26/2020 DISCHARGE DATE: 10/26/20 1451 VISIT LOCKED DATE TIME: PHYSICIAN: LUIS ROLAND RESOURCE: LUIS ROLAND REASON FOR APPOINTMENT 1. MED MANAGEMENT HISTORY OF PRESENT ILLNESS GENERAL: - 55-YEAR-OLD MALE IN FOR CHRONIC PAIN FOLLOW-UP. HE RATES HIS PAIN CURRENTLY AT A 2 AT REST AND A 9 WITH ACTIVITY. HE DESCRIBES HIS PAIN BURNING, SHARP PULLING, AND CRUSHING. HE FEELS HIS MEDICATIONS ARE HELFPUL AND DENIES MED SIDE EFFECTS AT THIS TIME. FALL RISK SCREENING: SCREENING : NO FALLS REPORTED IN THE LAST YEAR. PAIN SCREENING: PATIENT HAS A COMPLAINT OF ACUTE OR CHRONIC PAIN :YES LOCATION OF PAIN: WHOLE BODY INTENSITY OF PAIN (SCALE OF 1 TO 10): 2 AT REST 9 WITH ACTIVITY WHAT DOES YOUR PAIN FEEL LIKE:BURNING, SHARP PULLING, CRUSHING DURATION:CONTINOUS, CONSTANT PAIN IS INCREASED BY:ACTIVITIES PAIN IS DECREASED BY:USE OF PAIN MEDICATIONS TIZANIDINE NURSING NOTE: -. PAIN CENTER INTAKE QUESTIONS: DO YOU HAVE A HISTORY OF MRSA? :NO DO YOU TAKE A BLOOD THINNERS? :NO DO YOU HAVE ANY BLEEDING DISORDERS? :NO ANY NEW NUMBNESS OR WEAKNESS IN YOUR LEGS OR ARMS? :YES KNEES ANY PACEMAKER,DEFIBRILLATOR, OR DORSAL COLUMN STIMULATOR? :NO DO YOU HAVE ANY RASHES OR OPEN SORES? :NO ARE YOU ALLERGIC TO IV DYE? :NO ARE YOU DIABETIC? :YES ANY NEW PROBLEMS WITH YOUR MEDICATIONS? :NO HAVE YOU RECEIVED A VACCINE IN THE PAST 30 DAYS? :NO DO YOU PLAN TO RECEIVE A VACCINE IN THE NEXT 21 DAYS? :NO DO YOU NEED ANY PRESCRIPTION? :NO DO YOU TAKE ANY IMMUNOSUPPRESSIVE MEDICATIONS? :NO DO YOU HAVE ANY KIDNEY OR LIVER DISEASE? :NO IS THERE A CHANCE YOU COULD BE ? :NO ARE YOU BREAST FEEDING? :NO CURRENT MEDICATIONS TAKING TRULICITY 1.5 MG/0.5ML SOLUTION PEN-INJECTOR SUBCUTANEOUS 1 TIME WEEKLY TAKING ONETOUCH VERIO - STRIP IN VITRO TAKING VITAMIN D (ERGOCALCIFEROL) 1.25 MG ([id number] UT) CAPSULE 1 CAPSULE ORALLY WEEKLY TAKING CYMBALTA 30 MG CAPSULE DELAYED RELEASE PARTICLES 1 CAPSULE ORALLY WITH FOOD ONCE A DAY FOR PAIN TAKING DICLOFENAC SODIUM ER 100 MG TABLET EXTENDED RELEASE 24 HOUR 1 TABLET WITH FOOD OR MILK ORALLY ONCE A DAY TAKING TIZANIDINE HCL 4 MG TABLET 1 TABLET NEEDED ORALLY PRN HS MEDICATION LIST REVIEWED AND RECONCILED WITH THE PATIENT PAST MEDICAL HISTORY DIABETES MELLITUS ARTHRITIS DEGENERATIVE DISC DISEASE HIP PAIN ALLERGIES TRAMADOL HCL: ANXIETY/AGGRESSION - SIDE EFFECTS HYDROCODONE-ACETAMINOPHEN: ANXIETY/AGGRESSION - SIDE EFFECTS FAMILY HISTORY MOTHER: ALIVE 83 YRS, RHEUMATOID ARTHRITIS, DIAGNOSED WITH DIABETES MATERNAL GRAND MOTHER: RHEUMATOID ARTHRITIS 2 SISTER(S) . UNSURE OF FATHER'S HXAUNT - - CANCER. SOCIAL HISTORY GENERAL: TOBACCO USE ARE YOU A:NONSMOKER LATEX QUESTIONNAIRE LATEX ALLERGY : HAVE YOU EVER DEVELOPED ANY TYPE OF REACTION AFTER HANDLING LATEX PRODUCTS SUCH RUBBER GLOVES, CONDOMS, DIAPHRAGMS, BALLOONS, SOCKS, OR UNDERWEAR?NO LATEX ALLERGY : HAVE YOU EVER DEVELOPED ANY TYPE OF REACTION DURING OR AFTER DENTAL APPOINTMENT, VAGINAL/RECTAL EXAMINATION, SURGICAL PROCEDURE, OR ANY OTHER EXPOSURE?NO DATE ASKED : 12/21/2019 LATEX RISK : HAVE YOU EVER HAD ANY DIFFICULTY BREATHING OR HIVES AFTER EATING OR HANDLING ANY FRUITS, OR VEGETABLES; SUCH KIWI, BANANAS, STONE FRUITS, OR CHESTNUTSNO LATEX RISK : DO YOU HAVE A PREVIOUS PERSONAL HISTORY OF MORE THAN NINE SURGERIES, SPINA BIFIDA, OR REPEATED CATHERIZATIONS? NO LATEX RISK : ARE YOU FREQUENTLY EXPOSED TO LATEX PRODUCTS IN YOUR OCCUPATION?NO ALCOHOL SCREENING DID YOU HAVE A DRINK CONTAINING ALCOHOL IN THE PAST YEAR?YES HOW OFTEN DID YOU HAVE SIX OR MORE DRINKS ON ONE OCCASION IN THE PAST YEAR?NEVER (0 POINTS) HOW MANY DRINKS DID YOU HAVE ON A TYPICAL DAY WHEN YOU WERE DRINKING IN THE PAST YEAR?1 OR 2 (0 POINTS) HOW OFTEN DID YOU HAVE A DRINK CONTAINING ALCOHOL IN THE PAST YEAR?MONTHLY OR LESS (1 POINT) POINTS1 INTERPRETATIONNEGATIVE RECREATIONAL DRUG USE DRUG USE?NO CAFFEINE CAFFEINE USE?YES HOW OFTEN AND HOW MUCH? COFFEE- UP TO 1 POT OF COFFEE PER DAY LANGUAGE LANGUAGES SPOKEN:STATELESS EDUCATION LEVEL OF EDUCATION:FINISHED HIGH SCHOOL ALSO COMPLETED [employer]OL. LEARNING BARRIERS / SPECIAL NEEDS CHANGE FROM LAST VISIT?NO BARRIERS TO LEARNING?NO HEARING IMPAIRED?YES SMALL AMOUNT OF HEARING LOSS - NO HEARING AIDS. VISION IMPAIRED?NO COGNITIVELY IMPAIRED?NO READINESS TO LEARN?YES LEARNING PREFERENCES?NO LEARNING CAPABILITIES PRESENT?YES EMOTIONAL BARRIERS?NO SPECIAL DEVICES?NO INSPECTOR WEIGHTS AND MEASURES NEEDED?NO OCCUPATION: DISABLED. DIET: CARBOHYDRATE CONTROLLED; LOW SUGAR. EXERCISE: WALKS, DAILY (ALMOST EVERY DAY). MARITAL STATUS: SINGLE. OTHERS AT HOME: NONE. PATIENT DESCRIBES PAIN :ACHING, BURNING FROM 0-10, WHAT LEVEL IS YOUR PAIN TODAY?8 PRECIPITATING FACTORS ACTIVITY - OVER-DOING IT, EATING CERTAIN FOODS, WEATHER (AT TIMES) ALLEVIATING FACTORS DICLOFENAC IMPACT ON FUNCTION UNABLE TO DO THE THINGS HE USED TO ENJOY, DIFFICULTY WITH PERFORMING ACTIVITIES OF DAILY LIVING. - HAS THE PATIENT BEEN EDUCATED REGARDING HIS/HER PLAN OF CARE?YES HAS THE PATIENT BEEN EDUCATED REGARDING PAIN, THE RISK FOR PAIN, THE IMPORTANCE OF EFFECTIVE PAIN MANAGEMENT, AND THE PAIN ASSESSMENT PROCESS?YES ADVANCE DIRECTIVE ADVANCE DIRECTIVE DISCUSSED WITH PATIENT:YES PATIENT DECLINED HCP INFORMATION OR ASSISTANCE AT THIS TIME. 07/23/2019 REVIEW OF SYSTEMS CONSTITUTIONAL: ANY RECENT FEVER NO . CHILLS NO . WEIGHT CHANGE OF UNKNOWN REASONS NO . GASTROENTEROLOGY: NEW UNEXPLAINABLE CHANGES IN BOWEL CONTROL NO . CONSTIPATION NO . GENITOURINARY: ANY NEW CHANGE IN BLADDER CONTROL? NO . NEUROLOGY: NEW ONSET DIZZINESS OR NEUROLOGICAL CHANGES NOT MENTIONED NO . NEW NUMBNESS OR PAIN PATTERNS NOT MENTIONED AND PERTINENT TO TODAY'S VISIT NO . CARDIOLOGY: NEW CHEST PRESSURE NO . PATIENT DENIES NO . RESPIRATORY: UNEXPLAINABLE COUGH NO . NEW SHORTNESS OF BREATH NO . VITAL SIGNS WT 348.4 LBS, HT 75 IN, BMI 43.54 INDEX, BP 137/97 MM HG, HR 109 /MIN, RR 20 /MIN, TEMP 96.9 F, OXYGEN SAT % 96%, SAFE IN ENV? (Y/N) Y, REVIEWED BY: CHERRY. EXAMINATION GENERAL EXAMINATION: GENERALNO ACUTE DISTRESS, WELL NOURISHED AND HYDRATED. PSYCHAPPROPRIATE MOOD AND AFFECT . LUNGS:CLEAR TO AUSCULTATION BILATERALLY, NO WHEEZES, RHONCHI, RALES. HEART:NO MURMURS, REGULAR RATE AND RHYTHM. ASSESSMENTS ARTHRITIS - M19.90 (PRIMARY), RISK: (NULL) TREATMENT ARTHRITIS NOTES: 55-YEAR-OLD MALE IN FOR CHRONIC PAIN FOLLOW-UP. DISCUSSED CURRENT MEDICATIONS WITH PATIENT AND HE ASKED IF PAIN MEDICATIONS WERE STILL BEING CONTROLLED. PATIENT WAS INFORMED THAT YES THESE MEDICATIONS WERE STILL CONTROLLED AND THAT WE HAD DISCUSSED CHANGING HIM FROM DICLOFENAC TO A CONTROLLED MEDICATION IN THE PAST AND HE DID NOT WANT TO MAKE THE SWITCH. PATIENT CONTINUES TO EXPRESS FRUSTRATION WITH CURRENT CONTROL OF MEDICATIONS. IT WAS DECIDED WE WOULD CONTINUE WITH CURRENT MEDICATION REGIMEN AND FOLLOW-UP IN 4 MONTHS. PATIENT HAS EXPRESSED UNDERSTANDING OF AND WAS IN AGREEMENT WITH TREATMENT PLAN. GIVEN TIME TO ASK QUESTIONS AND EXPRESS CONCERNS. DISPOSITION & COMMUNICATION FOLLOW UP 4 MONTHS (REASON: ARTHRITIS ) ELECTRONICALLY SIGNED BY NICK THOMPSON ON 10/30/2020 AT 08:26 AM EDT DISCLAIMER : THIS IS A VISIT SUMMARY [facility]ART. IT IS NOT A COPY OF THE [facility] PROGRESS NOTE. PEGGYD
== END ==
LOC: M PAIN 14:30
PROVIDERS: ATTEND Family Medicine
DX: M19.90 Unspecified osteoarthritis, unspecified site (principal); E11.9 Type 2 diabetes mellitus without complications; Z79.899 Other long term (current) drug therapy; Z88.5 Allergy status to narcotic agent

== ENCOUNTER → 2020-11-27 | Outpatient (CLI) | payer OTHER ==
[2020-11-27 10:32] LABS: BASO % 0.5 % (0.0-1.0); EOS # 0.2 10^3/uL (0.0-0.5); EOS % 1.7 % (0.0-3.0); HEMATOCRIT 48.1 % (42.0-52.0); HEMOGLOBIN 16.3 g/dl (13.5-17.5); LYMPH # 2.4 10^3/uL (1.5-5.0); LYMPH % 27.9 % (24.0-44.0); MEAN CORPUSCULAR HEMOGLOBIN 31.8 pg (27.0-33.0); MEAN CORPUSCULAR HGB CONC 33.9 g/dl (32.0-36.5); MEAN CORPUSCULAR VOLUME 93.9 fl (80.0-96.0); MONO # 0.9 10^3/uL (0.0-0.8); MONO % 10.5 % (2.0-8.0); NEUTROPHILS # 5.1 10^3/uL (1.5-8.5); NEUTROPHILS % 58.9 % (36.0-66.0); RED BLOOD COUNT 5.12 10^6/uL (4.30-6.10); WHITE BLOOD COUNT 8.7 10^3/uL (4.0-10.0)
[2020-11-27 11:07] LABS: ALT/SGPT 38 U/L (12-78); BILIRUBIN,TOTAL 0.7 MG/DL (0.2-1.0); BLOOD UREA NITROGEN 20 MG/DL (7-18); CALCIUM LEVEL 10.2 MG/DL (8.5-10.1); CARBON DIOXIDE LEVEL 28 MEQ/L (21-32); CHLORIDE LEVEL 107 MEQ/L (98-107); CHOLESTEROL LEVEL 276 MG/DL (<200); CHOLESTEROL RISK RATIO 4.677 (<5); CREATININE FOR GFR 0.75 MG/DL (0.70-1.30); GLOMERULAR FILTRATION RATE > 60.0 (>56); GLUCOSE, FASTING 154 MG/DL (70-100); HDL CHOLESTEROL 59 MG/DL (>40); LDL CHOLESTEROL 183 MG/DL (<100); MAGNESIUM LEVEL 2.1 MG/DL (1.8-2.4); NON-HDL-C 217 MG/DL; POTASSIUM SERUM 4.6 MEQ/L (3.5-5.1); SODIUM LEVEL 140 MEQ/L (136-145); TOTAL PROTEIN 7.8 GM/DL (6.4-8.2); TRIGLYCERIDES LEVEL 169 MG/DL (<150)
== END ==
LOC: M LAB 09:00
PROVIDERS: ATTEND Nurse Practitioner Adult Health
DX: E11.65 Type 2 diabetes mellitus with hyperglycemia (principal)

== ENCOUNTER → 2021-04-05 | Outpatient (CLI) | payer OTHER ==
[2021-04-05 09:21] LABS: BASO # 0.1 10^3/uL (0.0-0.2); BASO % 0.6 % (0.0-1.0); EOS # 0.1 10^3/uL (0.0-0.5); EOS % 1.5 % (0.0-3.0); HEMATOCRIT 48.1 % (42.0-52.0); HEMOGLOBIN 16.1 g/dl (13.5-17.5); LYMPH # 2.3 10^3/uL (1.5-5.0); LYMPH % 26.3 % (24.0-44.0); MEAN CORPUSCULAR HEMOGLOBIN 31.4 pg (27.0-33.0); MEAN CORPUSCULAR HGB CONC 33.5 g/dl (32.0-36.5); MEAN CORPUSCULAR VOLUME 93.8 fl (80.0-96.0); MONO # 0.9 10^3/uL (0.0-0.8); MONO % 9.9 % (2.0-8.0); NEUTROPHILS # 5.3 10^3/uL (1.5-8.5); NEUTROPHILS % 61.1 % (36.0-66.0); PLATELET COUNT, AUTOMATED 287 10^3/uL (150-450); RED BLOOD COUNT 5.13 10^6/uL (4.30-6.10); WHITE BLOOD COUNT 8.7 10^3/uL (4.0-10.0)
[2021-04-05 09:40] LABS: HEMOGLOBIN A1c 7.2 %
[2021-04-05 10:01] LABS: ALBUMIN 4.1 GM/DL (3.2-5.2); ALT/SGPT 38 U/L (12-78); BILIRUBIN,TOTAL 0.7 MG/DL (0.2-1.0); BLOOD UREA NITROGEN 28 MG/DL (7-18); CALCIUM LEVEL 10.2 MG/DL (8.5-10.1); CARBON DIOXIDE LEVEL 28 MEQ/L (21-32); CHLORIDE LEVEL 103 MEQ/L (98-107); CHOLESTEROL LEVEL 268 MG/DL (<200); CREATININE FOR GFR 0.96 MG/DL (0.70-1.30); GLOMERULAR FILTRATION RATE > 60.0 (>56); GLUCOSE, FASTING 183 MG/DL (70-100); HDL CHOLESTEROL 66 MG/DL (>40); LDL CHOLESTEROL 166 MG/DL (<100); MAGNESIUM LEVEL 2.2 MG/DL (1.8-2.4); NON-HDL-C 202 MG/DL; SODIUM LEVEL 138 MEQ/L (136-145); TOTAL 25(OH) VITAMIN D 41.6 NG/ML (30.0-100.0); TRIGLYCERIDES LEVEL 181 MG/DL (<150)
== END ==
LOC: M LAB 08:17
PROVIDERS: ATTEND Nurse Practitioner Family
DX: E11.65 Type 2 diabetes mellitus with hyperglycemia (principal)

== ENCOUNTER → 2021-04-19 | Outpatient (CLI) | payer OTHER | LOC: M PAIN 10:15 | PROVIDERS: ATTEND Anesthesiology | DX: M47.816 Spondylosis without myelopathy or radiculopathy, lumbar region (principal); M25.50 Pain in unspecified joint; E11.9 Type 2 diabetes mellitus without complications; Z79.84 Long term (current) use of oral hypoglycemic drugs; Z79.899 Other long term (current) drug therapy; Z88.5 Allergy status to narcotic agent ==

== ENCOUNTER → 2021-05-03 | Outpatient (CLI) | payer OTHER ==
--- NOTE | 2021-05-04 17:22 | REPVR ---
PROCEDURE INFORMATION: Exam: MR Lumbar Spine Without Contrast Exam date and time: 05/03/2021 1:19 PM Age: 56 years old Clinical indication: Low back pain; Additional info: Spondylosis TECHNIQUE: Imaging protocol: Multiplanar magnetic resonance images of the lumbar spine without intravenous contrast. COMPARISON: CR Spine. Lumbosacral, complete 09/29/2015 10:23 AM FINDINGS: Vertebral body heights are maintained. No abnormal marrow signal. 0.2 cm grade 1 anterolisthesis of L4 on L5. No cord compression. No abnormal cord signal. Conus medullaris terminates at the L1 level. Paravertebral soft tissues are unremarkable. L1-L2: Broad-based disc bulge and facet hypertrophy cause mild canal narrowing with moderate right and mild left foraminal narrowing. L2-L3: Facet hypertrophy causes mild bilateral foraminal narrowing. No significant canal narrowing. L3-L4: Central disc protrusion and facet hypertrophy cause moderate canal narrowing with effacement of the bilateral lateral recesses. Moderate bilateral foraminal narrowing. L4-L5: Broad-based disc bulge and facet hypertrophy cause moderate to severe bilateral foraminal narrowing. Moderate canal narrowing with effacement of the bilateral lateral recesses. L5-S1: Broad-based disc bulge and facet hypertrophy cause mild to moderate canal narrowing with effacement of the bilateral lateral recesses. Moderate left and [id number] right foraminal narrowing. IMPRESSION: Multilevel spondylotic changes of the lumbar spine, as detailed above. Electronically signed by: Elbert Loaiza On 05/04/2021 17:22:14 PM
== END ==
LOC: M PLAIMG 12:13
PROVIDERS: ATTEND Anesthesiology
DX: M47.816 Spondylosis without myelopathy or radiculopathy, lumbar region (principal)

== ENCOUNTER → 2021-05-18 | Outpatient (CLI) | payer OTHER | LOC: M PAIN 11:30 | PROVIDERS: ATTEND Anesthesiology | DX: M46.1 Sacroiliitis, not elsewhere classified (principal); M53.3 Sacrococcygeal disorders, not elsewhere classified; G89.29 Other chronic pain; E11.9 Type 2 diabetes mellitus without complications; Z88.5 Allergy status to narcotic agent; E66.01 Morbid (severe) obesity due to excess calories; Z68.41 Body mass index [BMI] 40.0-44.9, adult; Z79.899 Other long term (current) drug therapy ==

== ENCOUNTER 2021-07-26 10:31 | Emergency (ER) | payer OTHER ==
[~2021-07-26] VITALS: Ht 190.5 cm; Wt 159.4 kg
[2021-07-26] MEDS ORDERED: TRUL0.5I (10:44)
[2021-07-26] MEDS ORDERED: TIZA10TA (10:44)
[2021-07-26] MEDS ORDERED: EZET10TA21 (10:44)
[2021-07-26] MEDS ORDERED: BOOSTRIX/ADACEL VACCINE (DIPHTH/PERTUSS/ACELL/TETANUS) 0.5ML SYR IM ONE (13:05)
[2021-07-26 13:30] LABS: BASO % 0.2 % (0.0-1.0); EOS # 0.1 10^3/uL (0.0-0.5); HEMATOCRIT 39.5 % (42.0-52.0); HEMOGLOBIN 13.8 g/dl (13.5-17.5); LYMPH # 1.4 10^3/uL (1.5-5.0); LYMPH % 26.7 % (24.0-44.0); MEAN CORPUSCULAR HEMOGLOBIN 32.2 pg (27.0-33.0); MEAN CORPUSCULAR HGB CONC 34.9 g/dl (32.0-36.5); MEAN CORPUSCULAR VOLUME 92.1 fl (80.0-96.0); MONO # 0.7 10^3/uL (0.0-0.8); MONO % 13.4 % (2.0-8.0); NEUTROPHILS # 3.1 10^3/uL (1.5-8.5); NEUTROPHILS % 58.3 % (36.0-66.0); PLATELET COUNT, AUTOMATED 172 10^3/uL (150-450); RED BLOOD COUNT 4.29 10^6/uL (4.30-6.10); WHITE BLOOD COUNT 5.2 10^3/uL (4.0-10.0)
[2021-07-26 13:48] LABS: ERYTHROCYTE SEDIMENTATION RATE 35 mm/hr (0-20)
[2021-07-26 13:51] LABS: ALBUMIN 3.5 GM/DL (3.2-5.2); ALT/SGPT 38 U/L (12-78); BILIRUBIN,TOTAL 0.5 MG/DL (0.2-1.0); BLOOD UREA NITROGEN 18 MG/DL (7-18); C REACTIVE PROTEIN QUANTITATIV 1.82 MG/DL (0.00-0.30); CALCIUM LEVEL 9.2 MG/DL (8.5-10.1); CARBON DIOXIDE LEVEL 28 MEQ/L (21-32); CHLORIDE LEVEL 108 MEQ/L (98-107); GLOMERULAR FILTRATION RATE > 60.0 (>56); GLUCOSE, FASTING 147 MG/DL (70-100); POTASSIUM SERUM 3.9 MEQ/L (3.5-5.1); SODIUM LEVEL 143 MEQ/L (136-145); TOTAL PROTEIN 6.8 GM/DL (6.4-8.2)
[2021-07-26] MEDS ORDERED: CLIN-250 PO (15:15)
[2021-07-26] MEDS ORDERED: BACIOIN5 OP (15:19)
[2021-07-26] MEDS ORDERED: BACI500O21 TOP (15:19)
[2021-07-26] MEDS ORDERED: BACITRACIN OINTMENT 30GM TUBE TOP ONE (15:20)
[2021-07-26] MEDS ORDERED: POLY1BAN TP (15:21)
[2021-07-26] MEDS ORDERED: [UNRECOGNIZED DRUG - CODE] XX (15:35)
[2021-07-26 15:58] VITALS: BP 134/84
== END 2021-07-26 16:00 | disposition home or self-care (01) ==
LOC: M ED 10:31
DX: L03.011 Cellulitis of right finger (principal); T23.221A Burn of second degree of single right finger (nail) except thumb, initial encounter; X15.3XXA Contact with hot saucepan or skillet, initial encounter; Y92.89 Other specified places as the place of occurrence of the external cause; E11.9 Type 2 diabetes mellitus without complications; G89.29 Other chronic pain; Z79.899 Other long term (current) drug therapy

== ENCOUNTER → 2022-03-28 | Outpatient (CLI) | payer OTHER ==
[~2022-03-28] MED LIST changes: +BACI500O21 TOP; +BACIOIN5 OP; +CLIN-250 PO; +EZET10TA21; +POLY1BAN TP; +TIZA10TA; +TRUL0.5I; +[UNRECOGNIZED DRUG - CODE] XX
== END ==
LOC: M LAB 03-27 12:00
PROVIDERS: ATTEND Nurse Practitioner Family
DX: E83.52 Hypercalcemia (principal)

== ENCOUNTER → 2022-06-27 | Outpatient (CLI) | payer OTHER | LOC: M PAIN 09:00 | PROVIDERS: ATTEND Nurse Practitioner Family | DX: Z53.21 Procedure and treatment not carried out due to patient leaving prior to being seen by health care provider (principal) ==

== ENCOUNTER → 2022-07-02 | Outpatient (CLI) | payer OTHER ==
[2022-07-02 12:50] LABS: BASO % 0.3 % (0.0-1.0); EOS # 0.1 10^3/uL (0.0-0.5); HEMATOCRIT 46.5 % (42.0-52.0); HEMOGLOBIN 15.9 g/dl (13.5-17.5); LYMPH # 2.3 10^3/uL (1.5-5.0); LYMPH % 25.4 % (24.0-44.0); MEAN CORPUSCULAR HEMOGLOBIN 31.4 pg (27.0-33.0); MEAN CORPUSCULAR HGB CONC 34.2 g/dl (32.0-36.5); MEAN CORPUSCULAR VOLUME 91.9 fl (80.0-96.0); MONO % 10.8 % (2.0-8.0); NEUTROPHILS # 5.7 10^3/uL (1.5-8.5); NEUTROPHILS % 62.1 % (36.0-66.0); PLATELET COUNT, AUTOMATED 281 10^3/uL (150-450); RED BLOOD COUNT 5.06 10^6/uL (4.30-6.10); WHITE BLOOD COUNT 9.2 10^3/uL (4.0-10.0)
[2022-07-02 13:18] LABS: MAGNESIUM LEVEL 1.9 MG/DL (1.8-2.4)
[2022-07-02 13:21] LABS: ALBUMIN 3.7 G/DL (3.2-5.2); ALKALINE PHOSPHATASE 85 U/L (46-116); ALT/SGPT 42 U/L (7.0-40); AST/SGOT 32 U/L (<34); BILIRUBIN,TOTAL 0.9 MG/DL (0.3-1.2); BLOOD UREA NITROGEN 18 MG/DL (9-23); CALCIUM LEVEL 9.8 MG/DL (8.5-10.1); CARBON DIOXIDE LEVEL 25 MMOL/L (20-31); CHLORIDE LEVEL 103 MMOL/L (98-107); CHOLESTEROL LEVEL 233 MG/DL (<200); CHOLESTEROL RISK RATIO 4.41 (<5); CREATININE FOR GFR 0.91 MG/DL (0.70-1.30); GLOMERULAR FILTRATION RATE > 60.0 (>56); GLUCOSE, FASTING 207 MG/DL (60-100); HDL CHOLESTEROL 52.8 MG/DL (>40); LDL CHOLESTEROL 131.4 MG/DL (<100); NON-HDL-C 180 MG/DL; POTASSIUM SERUM 4.7 MMOL/L (3.5-5.1); SODIUM LEVEL 140 MMOL/L (136-145); TOTAL PROTEIN 7.5 G/DL (5.7-8.2); TRIGLYCERIDES LEVEL 244 MG/DL (<150)
[2022-07-02 13:23] LABS: THYROID STIMULATING HORMONE 2.205 uIU/ML (0.55-4.78)
== END ==
LOC: M LAB 11:59
PROVIDERS: ATTEND Nurse Practitioner Family
DX: Z00.01 Encounter for general adult medical examination with abnormal findings (principal)

== ENCOUNTER → 2023-01-06 | Outpatient (CLI) | payer OTHER ==
[2023-01-06 09:14] LABS: BASO % 0.5 % (0.0-1.0); EOS # 0.2 10^3/uL (0.0-0.5); EOS % 2.1 % (0.0-3.0); HEMATOCRIT 43.9 % (42.0-52.0); LYMPH % 26.3 % (24.0-44.0); MEAN CORPUSCULAR HEMOGLOBIN 32.1 pg (27.0-33.0); MEAN CORPUSCULAR HGB CONC 34.2 g/dl (32.0-36.5); MEAN CORPUSCULAR VOLUME 93.8 fl (80.0-96.0); MONO # 0.7 10^3/uL (0.0-0.8); NEUTROPHILS # 4.8 10^3/uL (1.5-8.5); NEUTROPHILS % 61.6 % (36.0-66.0); PLATELET COUNT, AUTOMATED 235 10^3/uL (150-450); RED BLOOD COUNT 4.68 10^6/uL (4.30-6.10); WHITE BLOOD COUNT 7.8 10^3/uL (4.0-10.0)
[2023-01-06 09:28] LABS: ALBUMIN 3.7 G/DL (3.2-5.2); ALKALINE PHOSPHATASE 68 U/L (46-116); ALT/SGPT 45 U/L (7.0-40); AST/SGOT 24 U/L (<34); BILIRUBIN,TOTAL 1.1 MG/DL (0.3-1.2); BLOOD UREA NITROGEN 15 MG/DL (9-23); CALCIUM LEVEL 9.6 MG/DL (8.5-10.1); CARBON DIOXIDE LEVEL 27 MMOL/L (20-31); CHLORIDE LEVEL 106 MMOL/L (98-107); CHOLESTEROL LEVEL 199 MG/DL (<200); CHOLESTEROL RISK RATIO 4.08 (<5); CREATININE FOR GFR 0.72 MG/DL (0.70-1.30); GLOMERULAR FILTRATION RATE > 60.0 (>56); GLUCOSE, FASTING 165 MG/DL (60-100); HDL CHOLESTEROL 48.7 MG/DL (>40); LDL CHOLESTEROL 117.1 MG/DL (<100); MAGNESIUM LEVEL 1.8 MG/DL (1.8-2.4); NON-HDL-C 150.3 MG/DL; POTASSIUM SERUM 4.4 MMOL/L (3.5-5.1); SODIUM LEVEL 142 MMOL/L (136-145); TOTAL PROTEIN 6.8 G/DL (5.7-8.2); TRIGLYCERIDES LEVEL 166 MG/DL (<150)
[2023-01-06 09:30] LABS: THYROID STIMULATING HORMONE 1.372 uIU/ML (0.55-4.78)
[2023-01-06 09:33] LABS: HEMOGLOBIN A1c 7.4 % (4.0-6.0)
== END ==
LOC: M LAB 08:13
PROVIDERS: ATTEND Registered Nurse
DX: Z00.01 Encounter for general adult medical examination with abnormal findings (principal)

== ENCOUNTER → 2023-06-27 | Outpatient (CLI) | payer OTHER ==
[2023-06-27 09:08] LABS: HEMOGLOBIN 15.1 g/dl (13.5-17.5); MEAN CORPUSCULAR HEMOGLOBIN 31.8 pg (27.0-33.0); MEAN CORPUSCULAR HGB CONC 34.3 g/dl (32.0-36.5); MEAN CORPUSCULAR VOLUME 92.6 fl (80.0-96.0); PLATELET COUNT, AUTOMATED 224 10^3/uL (150-450); RED BLOOD COUNT 4.75 10^6/uL (4.30-6.10); WHITE BLOOD COUNT 8.3 10^3/uL (4.0-10.0)
[2023-06-27 09:26] LABS: CREATININE, URINE 89.2 MG/DL; MAU/CREAT RATIO 4.4 MCG/MG (0.0-30.0)
[2023-06-27 09:29] LABS: ALBUMIN 3.9 G/DL (3.2-5.2); ALKALINE PHOSPHATASE 69 U/L (46-116); ALT/SGPT 40 U/L (7.0-40); AST/SGOT 26 U/L (<34); BILIRUBIN,TOTAL 1.2 MG/DL (0.3-1.2); BLOOD UREA NITROGEN 12 MG/DL (9-23); CALCIUM LEVEL 9.8 MG/DL (8.3-10.6); CARBON DIOXIDE LEVEL 26 MMOL/L (20-31); CHLORIDE LEVEL 107 MMOL/L (98-107); CHOLESTEROL LEVEL 221 MG/DL (<200); CREATININE FOR GFR 0.65 MG/DL (0.70-1.30); GLOMERULAR FILTRATION RATE > 60.0 (>49); GLUCOSE, FASTING 132 MG/DL (74-106); HDL CHOLESTEROL 55.2 MG/DL (>40); LDL CHOLESTEROL 144.2 MG/DL (<100); MAGNESIUM LEVEL 1.8 MG/DL (1.8-2.4); NON-HDL-C 165.8 MG/DL; POTASSIUM SERUM 4.3 MMOL/L (3.5-5.1); SODIUM LEVEL 140 MMOL/L (136-145); TOTAL PROTEIN 7.2 G/DL (5.7-8.2); TRIGLYCERIDES LEVEL 108 MG/DL (<150)
[2023-06-27 09:30] LABS: THYROID STIMULATING HORMONE 1.697 uIU/ML (0.55-4.78)
[2023-06-27 09:31] LABS: TOTAL 25(OH) VITAMIN D 55.3 NG/ML (20.0-100.0)
== END ==
LOC: M LAB 07:57
PROVIDERS: ATTEND Registered Nurse
DX: E11.65 Type 2 diabetes mellitus with hyperglycemia (principal); E78.1 Pure hyperglyceridemia; E55.9 Vitamin D deficiency, unspecified; E78.00 Pure hypercholesterolemia, unspecified; E03.9 Hypothyroidism, unspecified; Z79.899 Other long term (current) drug therapy

== ENCOUNTER → 2023-12-26 | Outpatient (CLI) | payer OTHER ==
[2023-12-26 10:02] LABS: HEMATOCRIT 41.8 % (42.0-52.0); HEMOGLOBIN 14.7 g/dl (13.5-17.5); MEAN CORPUSCULAR HEMOGLOBIN 32.5 pg (27.0-33.0); MEAN CORPUSCULAR HGB CONC 35.2 g/dl (32.0-36.5); MEAN CORPUSCULAR VOLUME 92.5 fl (80.0-96.0); PLATELET COUNT, AUTOMATED 205 10^3/uL (150-450); RED BLOOD COUNT 4.52 10^6/uL (4.30-6.10); WHITE BLOOD COUNT 6.6 10^3/uL (4.0-10.0)
[2023-12-26 10:24] LABS: ALBUMIN 3.8 G/DL (3.2-5.2); ALKALINE PHOSPHATASE 78 U/L (46-116); ALT/SGPT 36 U/L (7.0-40); AST/SGOT 19 U/L (<34); BILIRUBIN,TOTAL 0.8 MG/DL (0.3-1.2); BLOOD UREA NITROGEN 19 MG/DL (9-23); CALCIUM LEVEL 9.6 MG/DL (8.3-10.6); CARBON DIOXIDE LEVEL 25 MMOL/L (20-31); CHLORIDE LEVEL 106 MMOL/L (98-107); CHOLESTEROL LEVEL 245 MG/DL (<200); CREATININE FOR GFR 0.63 MG/DL (0.70-1.30); GLOMERULAR FILTRATION RATE > 60.0 (>49); GLUCOSE, FASTING 164 MG/DL (74-106); POTASSIUM SERUM 4.4 MMOL/L (3.5-5.1); SODIUM LEVEL 139 MMOL/L (136-145); TOTAL PROTEIN 7.1 G/DL (5.7-8.2); TRIGLYCERIDES LEVEL 185 MG/DL (<150)
== END ==
LOC: M LAB 08:11
PROVIDERS: ATTEND Registered Nurse
DX: E11.65 Type 2 diabetes mellitus with hyperglycemia (principal); E78.00 Pure hypercholesterolemia, unspecified; E78.1 Pure hyperglyceridemia; E83.42 Hypomagnesemia; Z79.899 Other long term (current) drug therapy

== ENCOUNTER → 2024-06-30 | Outpatient (CLI) | payer OTHER ==
[2024-06-30 11:04] LABS: HEMOGLOBIN 16.6 g/dl (13.5-17.5); MEAN CORPUSCULAR HGB CONC 34.6 g/dl (32.0-36.5); MEAN CORPUSCULAR VOLUME 92.5 fl (80.0-96.0); PLATELET COUNT, AUTOMATED 191 10^3/uL (150-450); RED BLOOD COUNT 5.19 10^6/uL (4.30-6.10); WHITE BLOOD COUNT 7.2 10^3/uL (4.0-10.0)
[2024-06-30 11:33] LABS: ALBUMIN 3.7 G/DL (3.2-5.2); ALKALINE PHOSPHATASE 74 U/L (40-129); ALT/SGPT 39 U/L (7.0-40); AST/SGOT 24 U/L (<34); BILIRUBIN,TOTAL 0.8 MG/DL (0.3-1.2); BLOOD UREA NITROGEN 26 MG/DL (9-23); CALCIUM LEVEL 9.9 MG/DL (8.3-10.6); CARBON DIOXIDE LEVEL 27 MMOL/L (20-31); CHLORIDE LEVEL 102 MMOL/L (98-107); CHOLESTEROL LEVEL 219 MG/DL (<200); CHOLESTEROL RISK RATIO 4.58 (<5); CREATININE FOR GFR 0.86 MG/DL (0.70-1.30); GLOMERULAR FILTRATION RATE > 60.0 (>49); GLUCOSE, FASTING 204 MG/DL (74-106); HDL CHOLESTEROL 47.8 MG/DL (>40); LDL CHOLESTEROL 134.6 MG/DL (<100); MAGNESIUM LEVEL 1.6 MG/DL (1.8-2.4); NON-HDL-C 171.2 MG/DL; SODIUM LEVEL 138 MMOL/L (136-145); TOTAL PROTEIN 7.7 G/DL (5.7-8.2); TRIGLYCERIDES LEVEL 183 MG/DL (<150)
[2024-06-30 11:35] LABS: FREE T4 1.31 NG/DL (0.89-1.76); THYROID STIMULATING HORMONE 1.428 uIU/ML (0.55-4.78)
[2024-06-30 11:37] LABS: HEMOGLOBIN A1c 7.2 % (4.0-6.0)
[2024-06-30 11:47] LABS: CREATININE, URINE 301.8 MG/DL; MAU/CREAT RATIO 9.2 MCG/MG (0.0-30.0)
== END ==
LOC: M LAB 09:30
PROVIDERS: ATTEND Registered Nurse
DX: E78.00 Pure hypercholesterolemia, unspecified (principal)

== ENCOUNTER → 2025-07-01 | Outpatient (CLI) | payer OTHER ==
[~2025-07-01] MED LIST changes: +DICL-442 PO; -DICL100T89 PO; -EZET10TA21; +EZET10TA57
[2025-07-01 12:52] LABS: PLATELET COUNT, AUTOMATED 233 10^3/uL (150-450)
[2025-07-01 13:15] LABS: ESTIMATED AVERAGE GLUCOSE 140.0 MG/DL (60-110)
[2025-07-01 13:18] LABS: ALT/SGPT 27 U/L (7.0-40); AST/SGOT 23 U/L (<34); CALCIUM LEVEL 9.3 MG/DL (8.3-10.6); CARBON DIOXIDE LEVEL 24 MMOL/L (20-31); CHLORIDE LEVEL 106 MMOL/L (98-107); CHOLESTEROL LEVEL 242 MG/DL (<200); CHOLESTEROL RISK RATIO 6.68 (<5); CREATININE FOR GFR 0.69 MG/DL (0.70-1.30); GLOMERULAR FILTRATION RATE > 90.0 (>49); LDL CHOLESTEROL 187.8 MG/DL (<100); MAGNESIUM LEVEL 1.8 MG/DL (1.8-2.4); NON-HDL-C 205.8 MG/DL; POTASSIUM SERUM 4.1 MMOL/L (3.5-5.1); SODIUM LEVEL 142 MMOL/L (136-145); TRIGLYCERIDES LEVEL 90 MG/DL (<150)
[2025-07-01 13:20] LABS: FREE T4 1.52 NG/DL (0.89-1.76)
[2025-07-01 13:22] LABS: TOTAL 25(OH) VITAMIN D 59.2 NG/ML (20.0-100.0)
[2025-07-01 13:27] LABS: CREATININE, URINE 215.4 MG/DL; MALB URINE SIEMENS 6.0 MG/L; MAU/CREAT RATIO 2.7 MCG/MG (0.0-30.0)
== END ==
LOC: M LAB 12:07
PROVIDERS: ATTEND Registered Nurse
DX: E78.00 Pure hypercholesterolemia, unspecified (principal); E78.1 Pure hyperglyceridemia; E83.42 Hypomagnesemia; E11.65 Type 2 diabetes mellitus with hyperglycemia; E03.8 Other specified hypothyroidism; Z79.899 Other long term (current) drug therapy